=== PATIENT | female | born 1975 | race Caucasian/White ===

== ENCOUNTER → 2020-06-08 12:19 | Outpatient (CLI) | payer OTHER, SELFPAY ==
--- NOTE | ~2020-06-08 | MM_ITS ---
EXAMINATION: MM screening [facility] w [facility] HISTORY: Screening mammogram TECHNIQUE: Craniocaudal and mediolateral oblique 3-D tomosynthesis images were obtained and synthetic 2-D images were generated. CAD analysis was submitted and interpreted. COMPARISON: 11/20/2018 bilateral digital screening mammogram BREAST PARENCHYMAL COMPOSITION: The breasts are extremely dense, which lowers the sensitivity of mamm ography. FINDINGS: There is no evidence of suspicious mass, calcification, or architectural distortion to sugg est malignancy in either breast. There has been no suspicious interval change. IMPRESSION: 1. No mammographic evidence of malignancy. 2. Recommend routine screening mammography in one year. BI-RADS Category 1: Negative Reviewed, dictated and finalized at location A. NESS SOLUTIONS DIRECTOR
== END ==
PROVIDERS: Visit Provider Obstetrics & Gynecology
DX: Z12.31 Encounter for screening mammogram for malignant neoplasm of breast (principal)
CPT/HCPCS: 77063; 77067

== ENCOUNTER → 2021-06-17 11:01 | Outpatient (CLI) | payer OTHER, SELFPAY ==
--- NOTE | ~2021-06-17 | MM_ITS ---
EXAMINATION: MM screening [facility] HISTORY: Screening mammogram TECHNIQUE: Craniocaudal and mediolateral oblique 3-D tomosynthesis images were obtained and synthetic 2-D images were generated. CAD analysis was submitted and interpreted. COMPARISON: No prior mammogram is available for comparison at this institution. BREAST PARENCHYMAL COMPOSITION: The breasts are extremely dense, which lowers the sensitivity of mamm ography. FINDINGS: There is no evidence of suspicious mass, calcification, or architectural distortion to sugg est malignancy in either breast. There has been no suspicious interval change. IMPRESSION: 1. No mammographic evidence of malignancy. 2. Recommend routine screening mammography in one year. BI-RADS Category 1: Negative Reviewed, dictated and finalized at location A. MBLY LOADER
== END ==
PROVIDERS: Visit Provider Obstetrics & Gynecology
DX: Z12.31 Encounter for screening mammogram for malignant neoplasm of breast (principal)
CPT/HCPCS: 77063; 77067

== ENCOUNTER 2021-12-17 00:50 | Day surgery (SDC) | payer OTHER, SELFPAY ==
[2021-12-14 13:31] VITALS: BMI 22.0
--- NOTE | 2021-12-14 13:33 | PC.NURSE ---
Report to the Outpatient Waiting Room, entrance under the green pavilion located off [facility], at time __1000 on date _12/17/21_. OR Time: _1200 . - You and your visitor will be asked a series of questions to screen for COVID 19 for your protection. - Only one visitor is allowed at this time. - The patient visitor is requested to leave or wait in car when not with patient. - A mask is required within the hospital. Patients may have clear liquids (water, carbonated beverages, clear teas, apple juice) until 3 hours prior to surgery with a maximum of 20 ounces. - No food from midnight until time of surgery - Infants may have breast milk until 4 hours before surgery, infant formula 6 hours prior to surgery. - Children will be allowed to drink immediately following surgery. If applicable, please bring a bottle or sippy cup to assist with drinking. Juice, water, soda, and popsicles are readily available. For infants on formula, please bring formula the day of surgery. Pacifiers are allowed. Take the following medications with a SIP of water the morning of surgery: NONE Medications to discontinue per physician VITAMINS/ SUPPLIMENTS Date to take last dose_12/14/21 Please no make-up, nail romansh, hairspray, perfume, deodorant, or body powder the day of surgery. No jewelry (including any body piercings) or valuables the day of surgery, leave them at home. Please take a shower or bath the night before, or the morning of, surgery with an antibacterial soap. Wear comfortable, loose fitting clothing. Children are encouraged to wear pajamas. - Jewelry must be removed prior to entering the operating room. Rings and piercings that are not removed may be cut off. - The hospital will not accept responsibility for valuables. - Please leave all valuables, including medications, at home the day of surgery. If you are going home after surgery, a licensed tilt tray driver must drive you home. - NO public transportation without another adult. - We recommend that an adult stay with you for 24 hours following discharge. - We also recommend that you do not drive, make important decision, drink alcoholic beverages, or take any drugs that were not prescribed by your health care provider for at least 24 hours after your discharge time. For Pediatric surgeries, we recommend two adults accompany the child home (only one inside the building at this time). Follow any additional instructions given to you from your surgeon. If you or anyone in your household have experienced Covid symptoms in the past week, please notify your surgeon or the nurse liaison at the phone number below for possible testing. Telephone instructions given to ___PATIENT and asked if any additional questions and then verbalized understanding. Patient advised to call surgeon office or pre surgery nurse liaison [phone] if any additional questions.
[2021-12-17] VITALS (13 sets, daily range): BP systolic 104–128; BP diastolic 61–85; PULSE 61–108; RESP 14–20; TEMP 36.2–37.1; O2SAT 99–100
[2021-12-17] MEDS: ACETAMINOPHEN 500 MG TABLET 1000 MG PO (10:31)
--- NOTE | 2021-12-17 10:32 | WPDANESEPPF ---
Anes - Initial Pre Proc Eval Procedure: Operation Date: 12/17/21 12:00 Proposed Procedures p Hysteroscopy Dilation and Curettage Anastasiia Endometrial Ablation with Polypectomy - Sergio Bonilla MD s Laparoscopic Tubal Ligation with Rings - Sergio Bonilla MD Date/Time: 12/17/21 10:32 Surgeon: Sergio Bonilla MD Pre Op Diagnosis: desires sterilization,uterine polyp, irr. bleeding Patient Data Age: 46 Gender: F Height: 1.65 m Weight: 60.75 kg Last Vital Signs Temp 37.1 C 12/17/21 10:16 Pulse 104 H 12/17/21 10:16 Resp 16 12/17/21 10:16 BP 128/83 12/17/21 10:16 Pulse Ox 100 12/17/21 10:16 O2 Del Method Room Air 12/17/21 10:16 Allergies Allergy/AdvReac Type Severity Reaction Status Date / Time latex Allergy Intermediate IRRITATION Verified 12/17/21 10:24 WITH CONDOMS metoclopramide Allergy Intermediate Hives,JITTE Verified 12/17/21 10:24 RY azithromycin Allergy Mild Diarrhea Verified 12/17/21 10:24 levofloxacin Allergy Mild Diarrhea Verified 12/17/21 10:24 sulfamethoxazole Allergy Mild Diarrhea Verified 12/17/21 10:24 trimethoprim Allergy Mild Diarrhea Verified 12/17/21 10:24 Home Medications Medication Instructions Recorded Confirmed Type Lactobacillus 2 cap PO DAILY 12/14/21 12/17/21 History acidophilus-Bifidobac.animalis 2.5 billion cell capsule (Daily Probiotic) Pancreat-Bet [id number]-obt-jvkm-pap 250 1 cap PO DAILY 12/14/21 12/17/21 History mg-162 mg-65 mg-125 mg capsule (Super Enzyme) ascorbic acid (vitamin C) 500 mg 500 mg PO DAILY 12/14/21 12/17/21 History capsule cetirizine 10 mg capsule (Zyrtec) 10 mg PO DAILY PRN ALLERGIES 12/14/21 12/17/21 History cholecalciferol (vitamin D3) 125 250 mcg PO DAILY 12/14/21 12/17/21 History mcg (5,000 unit) tablet (Vitamin D3) magnesium oxide 300 mg PO DAILY 12/14/21 12/17/21 History mometasone 50 mcg/actuation nasal 2 spray intranasal DAILY PRN 12/14/21 12/17/21 History spray Congestion progesterone micronized 100 mg 100 mg PO HS 12/14/21 12/17/21 History capsule vitamin B complex 1 cap PO DAILY 12/14/21 12/17/21 History lorazepam 0.5 mg tablet 0.5 mg PO DAILY PRN Anxiety 12/15/21 12/17/21 History fiber 1 packet PO PRN 12/17/21 12/17/21 History Patient hx anesthesia problems: post op nausea/vomiting Family hx anesthesia problems: none Results Review: All pre-operative results and documents have been reviewed as part of the pre-operative evaluation. PMFSH Past Medical History Medical History (Updated 12/17/21 @ 10:32 by Nikita Isaac MD) Anxiety Surgical History Surgical History (Updated 12/17/21 @ 10:46 by Nikita Isaac MD) H/O cervical spine surgery History of cholecystectomy Social History Social History Smoking status: Never smoker Alcohol intake: never Substance use type: does not use Living arrangements: with family Anes - Eval Final PreProcedure Day of Procedure 12/17/21 10:32 Patient weight: normal Heart: regular rate and rhythm Lungs: clear to auscultation Airway: Mallampati scale class II Neurological: alert and oriented Last oral intake: >/= 8 hours ASA classification: II Anesthetic plan: proceed Anesthesia type and monitoring: general ETT and standard monitoring Results Review: All pre-operative results and documents have been reviewed as part of the pre-operative evaluation. Informed Consent: The patient's anesthetic plan and its attendant risks and benefits were discussed with the patient/family/POA. Questions were solicited and answers provided to the satisfaction of the patient/family/POA.
[2021-12-17] MEDS: KETOROLAC 15 MG/ML VIAL (*BKC) IV PUSH (10:39)
[2021-12-17] MEDS: LACTATED RINGERS 1,000 ML 30 ML IV CONT ×2 (10:41→13:42)
--- NOTE | 2021-12-17 11:33 | PM.IMHP ---
H&P: HPI History of Present Illness Date/Time: 12/17/21 11:33 Chief Complaint: Irregular bleeding Narrative: 46 y/o who has been taking daily progesterone prescribed by a wellness nurse practitioner. She has experienced irregular vaginal bleeding. Ultrasound exam shows an endometrial mass measuring 1.3 cm. I have offered surgical management. She is also finished with childbearing. She would like a concurrent tubal ligation. Review of Systems Review of Systems: All systems reviewed & are unremarkable except as noted in HPI and below PMFSH Past Medical History Medical History Anxiety Surgical History Surgical History H/O cervical spine surgery History of cholecystectomy Social History Social History Smoking status: Never smoker Alcohol intake: never Substance use type: does not use Living arrangements: with family Meds Home Medications and Allergies Home Medications Medication Instructions Recorded Confirmed Type Lactobacillus 2 cap PO DAILY 12/14/21 12/17/21 History acidophilus-Bifidobac.animalis 2.5 billion cell capsule (Daily Probiotic) Pancreat-Bet YKj-ejn-ihai-pap 250 1 cap PO DAILY 12/14/21 12/17/21 History mg-162 mg-65 mg-125 mg capsule (Super Enzyme) ascorbic acid (vitamin C) 500 mg 500 mg PO DAILY 12/14/21 12/17/21 History capsule cetirizine 10 mg capsule (Zyrtec) 10 mg PO DAILY PRN ALLERGIES 12/14/21 12/17/21 History cholecalciferol (vitamin D3) 125 250 mcg PO DAILY 12/14/21 12/17/21 History mcg (5,000 unit) tablet (Vitamin D3) magnesium oxide 300 mg PO DAILY 12/14/21 12/17/21 History mometasone 50 mcg/actuation nasal 2 spray intranasal DAILY PRN 12/14/21 12/17/21 History spray Congestion progesterone micronized 100 mg 100 mg PO HS 12/14/21 12/17/21 History capsule vitamin B complex 1 cap PO DAILY 12/14/21 12/17/21 History lorazepam 0.5 mg tablet 0.5 mg PO DAILY PRN Anxiety 12/15/21 12/17/21 History fiber 1 packet PO PRN 12/17/21 12/17/21 History Allergies Allergy/AdvReac Type Severity Reaction Status Date / Time latex Allergy Intermediate IRRITATION Verified 12/17/21 10:24 WITH CONDOMS metoclopramide Allergy Intermediate Hives,JITTE Verified 12/17/21 10:24 RY azithromycin Allergy Mild Diarrhea Verified 12/17/21 10:24 levofloxacin Allergy Mild Diarrhea Verified 12/17/21 10:24 sulfamethoxazole Allergy Mild Diarrhea Verified 12/17/21 10:24 trimethoprim Allergy Mild Diarrhea Verified 12/17/21 10:24 Vital Signs Vital Signs - 24 hr 12/17/21 10:16 Temperature 37.1 C Pulse Rate 104 H Respiratory Rate 16 Blood Pressure 128/83 Pulse Oximetry 100 Oxygen Delivery Room Air Exam Const: Orientation/consciousness: patient oriented x3 Other: Well-developed, well-nourished female in no acute distress. Neck: Thyroid: thyroid normal Lymphatic: no lymphadenopathy noted (in neck, axilla or inguinal nodes) Resp: Effort & Inspection: normal respiratory effort Auscultation: clear to auscultation bilaterally Cardio: Rate: regular rate Rhythm: regular rhythm Heart sounds: S1 normal heart sound present and S2 normal heart sound present GI: Other: ABD: Soft, nontender, nondistended. No guarding or rebound tenderness. No hepatosplenomegaly. : General: Yes no CVA tenderness Other: External genitalia: normal female hair distribution, without lesion. Urethral meatus: no lesion, non prolapsed. Bladder: no mass, nontender Vagina: well-estrogenized, without lesion or discharge. No cystocele or rectocele. Cervix: no lesion or discharge. Uterus: small, anteverted, freely mobile, nontender Adnexa: no mass or tenderness. Anus/perineum: no lesions, nontender Back/Spine/Pelvis: Back: no CVA tenderness Skin: General skin exam: normal color and no rashes or
--- NOTE | 2021-12-17 11:56 | WPDHPUPDATE1 ---
History and Physical Update Update Date/Time: 12/17/21 11:56 History and Physical has been reviewed, including an updated exam of the patient. There are NO changes in the patient's condition. Risks, benefits, and alternatives have been discussed and questions answered. Patient agrees to proceed with procedure.
--- NOTE | 2021-12-17 13:03 | W.PM.PROC2 ---
Procedure Note - Detailed Date of Procedure 12/17/21 Pre-op Diagnosis Metrorrhagia Abnormal pelvic ultrasound Desired sterility Post-op Diagnosis Same Procedure Performed Laparoscopic bilateral tubal ligation with Falope rings Hysteroscopy Dilation and sharp curettage Endometrial ablation Surgeon Sergio Bonilla MD Anesthesia General and Local (1% lidocaine) Findings Surgically absent gallbladder. Normal-appearing liver. Vermiform appendix not visualized. Uterus a little enlarged and boggy. Bilateral Fallopian tubes unremarkable. Posterior cul-de-sac obliterated by adhesive disease. Anterior cul-de-sac unremarkable. After adhesiolysis, both ovaries normal-appearing. On hysteroscopy, an apparent endometrial polyp was noted. Both tubal ostia seen. Uterus sounded to a depth of 9.5 cm with a cervical length of 3 cm. Description of Procedure The patient was taken to the operating room where general endotracheal anesthesia was administered. She was prepared and draped in the usual sterile fashion in dorsal lithotomy position. The bladder was drained with a red rubber catheter. A sterile speculum was placed into the vagina. The anterior lip of the cervix was grasped with a single-tooth tenaculum. The acorn uterine manipulator was placed. The speculum was withdrawn. Gloves were changed and attention was turned the abdomen. An infraumbilical skin incision was made with a scalpel. The abdomen was tented and a 5mm bladeless trocar was advanced under direct laparoscopic visualization. Pneumoperitoneum was administered using carbon dioxide gas. A survey of the pelvis and abdomen revealed the findings noted above. A second skin incision was made in the midline above the symphysis pubis and an 8mm bladeless trocar was advanced under direct laparoscopic visualization. The blunt probe was used to lyse adhesions in the posterior cul-de-sac to free the ovaries and visualize them. The fallopian tube on the right side was followed out to the fimbriated end for identification. It was then grasped in the midportion with the Falope ring applicator. The Falope ring was tented applied. A good loop of tube was noted to be distal to the ring. Hemostasis was excellent. The device was reloaded and the contralateral tube was similarly identified and ligated. An excellent application was noted here as well. The pelvis was irrigated with warmed normal saline. A total of 6mL of 1% lidocaine was infiltrated into the serosa of the proximal tubes for postoperative anesthesia. The ports were withdrawn. The gas was allowed to escape. The skin incisions were reapproximated using interrupted subcuticular sutures of 4 0 Vicryl. Dermaflex was applied externally. Attention was redirected to the vagina, where the acorn manipulator was withdrawn and the speculum reintroduced. Ten mL of 1% lidocaine was administered in a paracervical block. The cervix was then gently dilated using Hegar dilators until an 8 mm dilator could be passed. Hysteroscopy was performed using sterile saline as a distention medium. Findings are as noted above. Sharp curettage was then performed, and endometrial curettings were collected on a Telfa pad and passed off to be sent to pathology. Finally, the the Anastasiia device was advanced and endometrial ablation commenced without difficulty. The device was withdrawn and a second look was taken using the hysteroscope. Excellent coverage of the endometrial cavity was noted. The tenaculum was removed. Hemostasis was excellent. Sponge, lap, needle and instrument counts were correct. The patient was awakened and taken to the recovery room in stable condition. I was present and scrubbed through the entire procedure. Implants Falope rings x 2 Estimated Blood Loss 10 Drains No Packing No Pathology Yes (Endometrial curettings) Complications None Condition Stable Disposition PACU
[2021-12-17] MEDS: fentaNYL CITRATE INJ (*CRX) 100 MCG/2 ML VIAL 25 MCG IV PUSH ×8 (13:24→14:28)
[2021-12-17] MEDS: diphenhydrAMINE HCl INJ 50 MG/ML VIAL 12.5 MG IV PUSH ×2 (13:44→14:09)
[2021-12-17] MEDS: ONDANSETRON INJ 4 MG/2 ML VIAL IV PUSH (15:05)
[2021-12-17] MEDS: oxyCODONE HCL (*CRX) 5 MG TAB IR PO (15:22)
== END 2021-12-17 16:36 | disposition home or self-care (01) ==
PROVIDERS: PCP Internal Medicine; Visit Provider Obstetrics & Gynecology
PROC: 0U5B8ZZ Destruction of Endometrium, Via Natural or Artificial Opening Endoscopic (ICD-10-PCS; CPT 58563; principal; 2021-12-17 12:00)
PROC: (CPT 58671; 2021-12-17 12:00)
DX: N92.1 Excessive and frequent menstruation with irregular cycle (principal); Z30.2 Encounter for sterilization; N73.6 Female pelvic peritoneal adhesions (postinfective); N84.0 Polyp of corpus uteri; F41.9 Anxiety disorder, unspecified
CPT/HCPCS: 58671; 58563; 88305; A4264; A9270; J0330; J1100; J1200; J1885; J2250; J2370; J2405; J2704; J2710; J3010; J7030; J7120

== ENCOUNTER → 2022-08-04 11:31 | Outpatient (CLI) | payer OTHER, SELFPAY ==
--- NOTE | ~2022-08-04 | MM_ITS ---
EXAMINATION: MM screening [facility] HISTORY: Screening mammogram TECHNIQUE: Craniocaudal and mediolateral oblique 3-D tomosynthesis images were obtained and synthetic 2-D images were generated. CAD analysis was submitted and interpreted. COMPARISON: 06/17/2021, 06/08/2020, 11/20/2018 BREAST PARENCHYMAL COMPOSITION: The breasts are extremely dense, which lowers the sensitivity of mamm ography. FINDINGS: No suspicious mass, calcification, or architectural distortion are identified in either bella ast to suggest malignancy. There has been no suspicious interval change. IMPRESSION: 1. No mammographic evidence of malignancy. 2. Recommend routine screening mammography in one year. BI-RADS Category 1: Negative Reviewed, dictated and finalized at location A. GENCY ROOM SPECIALIST
== END ==
PROVIDERS: PCP Obstetrics & Gynecology; Visit Provider Obstetrics & Gynecology
DX: Z12.31 Encounter for screening mammogram for malignant neoplasm of breast (principal)
CPT/HCPCS: 77063; 77067

== ENCOUNTER 2022-11-02 13:14 | Emergency (ER) | payer OTHER, SELFPAY ==
--- NOTE | ~2022-11-02 | CT_ITS ---
EXAMINATION: CT abdomen pelvis wo con DATE: 11/02/2022 14:29 INDICATION: Right lower quadrant and flank pain. Nausea and vomiting. TECHNIQUE: Computed tomography (CT) of the abdomen and pelvis was performed without intravenous contr ast. Automated exposure control and iterative reconstruction technique were employed. Exam dose: 261 .88 mGy-cm total exam DLP. COMPARISON: 12/14/2017 right upper quadrant abdominal ultrasound examination FINDINGS: The lung bases are clear. Normal heart size. No pericardial or pleural effusion. Status post cholecystectomy. No bile duct or pancreatic duct dilatation. The liver, spleen, pancreas, and adrenal glands and kidneys appear unremarkable on this limited noncontrast examination. No urina ry tract calculus or hydroureteronephrosis is detected. Status post bilateral tubal ligation. The uterus, adnexal areas and urinary bladder are otherwise unr emarkable. There are some scattered nonenlarged right lower quadrant lymph nodes which may be due to mesenteric adenitis. No CT evidence of appendicitis is noted. No bowel obstruction, bowel wall thickening, pneum atosis or intraperitoneal free air is detected. Very small fat-containing umbilical hernia. Included skeletal structures are unremarkable. IMPRESSION: Status post cholecystectomy Status post bilateral tubal ligation Mild mesenteric adenitis, right lower quadrant is suggested No CT evidence of appendicitis or urinary tract calculus or hydroureteronephrosis Reviewed, dictated and finalized at Location A. Reviewed, dictated and finalized at location B. IMPRESSION: Status post cholecystectomy Status post bilateral tubal ligation Mild mesenteric adenitis, right lower quadrant is suggested No CT evidence of appendicitis or urinary tract calculus or hydroureteronephros is
[2022-11-02 13:16] VITALS: BP 137/80; PULSE 95; RESP 18; TEMP 36.6; O2SAT 100
[2022-11-02 13:47] LABS: Basophils Percent Auto 0.5 % (0.2-1.2); Eosinophils Percent Auto 0.5 % (0-4.4); Hematocrit 41.9 % (37.0-47.0); Hemoglobin 14.2 g/dL (12.0-15.0); Immature Granulocyte Absolute 0.02 K/mm3 (0.00-0.031); Immature Granulocyte Percent A 0.3 % (0-0.5); Lymphocytes Percent Auto 27.2 % (18.3-44.2); Mean Corpuscular HGB Conc 33.9 g/dl (32-36); Mean Corpuscular Hemoglobin 31.3 pg (26-34); Mean Corpuscular Volume 92.5 fl (80-100); Mean Platelet Volume 11.2 fl (7.4-10.4); Monocytes Absolute Auto 0.7 K/mm3 (0.1-0.6); Monocytes Percent Auto 9.7 % (2.6-8.5); Neutrophils Absolute Auto 4.5 K/mm3 (1.3-6.7); Neutrophils Percent Auto 61.8 % (45.5-73.1); Platelet Count Result 220 k/mm3 (150-375); Red Blood Count 4.53 M/mm3 (4.2-5.4); Red Cell Distribution Width 12.2 % (11.5-14.5); White Blood Count 7.3 K/mm3 (4.5-10.0)
[2022-11-02 13:57] LABS: Alanine Aminotransferase 22 U/L (6-35); Albumin Level 4.8 g/dL (3.5-5.1); Alkaline Phosphatase 62 U/L (38-126); Anion Gap 9 mmol/L (8-16); Aspartate Amino Transferase 28 U/L (14-36); Bilirubin,Total 0.6 mg/dL (0.2-1.3); Blood Urea Nitrogen 11 mg/dL (7-17); Calcium 9.3 mg/dL (8.4-10.2); Carbon Dioxide 26 mmol/L (22-30); Chloride 104 mmol/L (98-107); Estimated CRCL calculation 62 ml/min; Estimated Glomerular Filt Rate > 60; Glucose 101 mg/dL (65-110); Lipase 131 U/L (23-300); Potassium 3.6 mmol/L (3.4-5.0); Sodium 139 mmol/L (137-145)
[2022-11-02 14:00] LABS: Appearance Urine Cloudy (Clear); Bacteria Urine None Seen /hpf; Bilirubin Urine Negative (Negative); Blood Urine Negative (Negative); Color Urine Yellow (Yellow); Glucose Urine UA Negative (Negative); Ketones Urine Negative (Negative); Leukocyte Esterase Ur Trace LEU/UL (Negative); Need Manual Microscopic Reviewed; Nitrate Urine Negative (Negative); Non Pathogenic Casts 0-2; Protein Urine Negative (Negative); Specific Grav Ur 1.004 (1.001-1.035); Squamous Epithelial Cell Urine None seen /hpf (Few); Urobilinogen Urine 0.2 mg/dL (<2.0); WBC Urine 0-5 /hpf
[2022-11-02 14:01] LABS: Add Urine Microscopic? YES
--- NOTE | 2022-11-02 14:43 | ED.ABDPAIN ---
HPI - Abdominal Pain General Chief Complaint: Abdominal Pain Stated Complaint: RLQ pain Time Seen by Provider: 11/02/22 13:30 History of Present Illness HPI narrative: Patient is a 47-year-old female who presents ER with right lower quadrant abdominal pain. Ongoing since 10/27/2022. Intermittent. Had improved over weekend but worsening today. She has an outpatient ultrasound scheduled for her ovary to see if she has an ovarian cyst. No vaginal bleeding or discharge. No urinary frequency urgency or dysuria. She has mild pain going into her right back and feels slightly constipated. Related Data Home Medications Medication Instructions Recorded Confirmed Lactobacillus 2 cap PO DAILY 12/14/21 12/17/21 acidophilus-Bifidobac.animalis 2.5 billion cell capsule (Daily Probiotic) Pancreat-Bet OBu-ejl-mtby-pap 250 1 cap PO DAILY 12/14/21 12/17/21 mg-162 mg-65 mg-125 mg capsule (Super Enzyme) ascorbic acid (vitamin C) 500 mg 500 mg PO DAILY 12/14/21 12/17/21 capsule cetirizine 10 mg capsule (Zyrtec) 10 mg PO DAILY PRN ALLERGIES 12/14/21 12/17/21 cholecalciferol (vitamin D3) 125 250 mcg PO DAILY 12/14/21 12/17/21 mcg (5,000 unit) tablet (Vitamin D3) magnesium oxide 300 mg PO DAILY 12/14/21 12/17/21 vitamin B complex 1 cap PO DAILY 12/14/21 12/17/21 lorazepam 0.5 mg tablet 0.5 mg PO DAILY PRN Anxiety 12/15/21 12/17/21 fiber 1 packet PO PRN 12/17/21 12/17/21 riboflavin (vitamin B2) 400 mg 400 mg PO DAILY 05/26/22 tablet Allergies Allergy/AdvReac Type Severity Reaction Status Date / Time latex Allergy Intermediate IRRITATION Verified 11/01/22 11:05 WITH CONDOMS metoclopramide Allergy Intermediate Hives,JITTE Verified 11/01/22 11:05 RY azithromycin Allergy Mild Diarrhea Verified 11/01/22 11:05 levofloxacin Allergy Mild Diarrhea Verified 11/01/22 11:05 sulfamethoxazole Allergy Mild Diarrhea Verified 11/01/22 11:05 trimethoprim Allergy Mild Diarrhea Verified 11/01/22 11:05 Review of Systems Review of Systems: All systems reviewed & are unremarkable except as noted in HPI and below Constitutional: Constitutional: Denies chills, Denies fatigue and Denies fever(s) Gastrointestinal: Gastrointestinal: Reports abdominal pain, Reports bloating, Reports constipation, Denies diarrhea, Denies nausea and Denies vomiting Genitourinary: Genitourinary: Denies hematuria, Denies nocturia, Denies dysuria, Reports pelvic pain and Reports flank pain Musculoskeletal: Musculoskeletal: Reports back pain, Denies arthralgias and Denies joint swelling PMFSH Past Medical History Medical History Anxiety Biliary dyskinesia Diarrhea Dyspepsia Encounter for surgical aftercare following surgery on the digestive system Postprandial nausea Surgical History Surgical History H/O cervical spine surgery History of cholecystectomy Social History Social History Smoking status: Never smoker Second hand tobacco smoke exposure: No Alcohol intake: never Substance use: never Substance use type: does not use Lack of Transportation: No Lack of Food: Never True Current Housing: I Have Housing Concerned About Future Housing: No Difficulty Paying Gas/Electric Bills: No Difficulty Paying for Meds: No Currently Unemployed: No Difficulty w/ Childcare or Family Care: No Living arrangements: with family Occupation/Education: occupation Gender identity (if verbalized by the patient): Female Sexual Orientation (if Verbalized by the Patient): Straight or Heterosexual Exam Narrative: GENERAL: Well-appearing, well-nourished, and in no acute distress. HEAD: Normocephalic, atraumatic. ENT: Mucous membranes moist. CHEST: Clear to auscultation. No respiratory distress. HEART: Regular rate and rhythm. Normal peripheral pulses. ABDOMEN:
== END 2022-11-02 16:04 | disposition home or self-care (01) ==
PROVIDERS: Emergency Medicine; Emergency Provider Emergency Medicine
DX: I88.0 Nonspecific mesenteric lymphadenitis (principal); F41.9 Anxiety disorder, unspecified; Z90.49 Acquired absence of other specified parts of digestive tract
CPT/HCPCS: 36415; 74176; 80053; 81001; 81025; 83690; 85025; 99284

== ENCOUNTER → 2023-02-01 08:05 | Outpatient (CLI) | payer OTHER, SELFPAY ==
--- NOTE | ~2023-02-01 | MR_ITS ---
MRI of the lumbar spine Clinical History: Radiculopathy Technique: Axial T2-weighted images, and sagittal T1-weighted, T2-weighted, and T2 fat-sat images wer e acquired. Findings: There is no fracture or subluxation of the lumbar spine. Vertebral bodies maintain normal h eight and alignment. No suspicious bone marrow signal abnormality seen. There is no significant disc bulge or herniation at any lumbar level. There is moderate facet arthrop athy at L3-L4, L4-L5, and L5-S1. No spinal canal stenosis or neural foraminal narrowing at any lumbar level. Paravertebral soft tissues are unremarkable. Impression: Mild degenerative change, as above. Reviewed, dictated and finalized at location M. Impression: Mild degenerative change, as above.
== END ==
PROVIDERS: PCP Physician Assistant Medical; Visit Provider Physician Assistant Medical
DX: M54.16 Radiculopathy, lumbar region (principal)
CPT/HCPCS: 72148

== ENCOUNTER 2023-03-26 10:59 | Emergency (ER) | payer OTHER, SELFPAY ==
--- NOTE | 2023-03-26 11:24 | ED.GENADULT ---
HPI - General Adult General Chief complaint: Upper Respiratory Infection Stated complaint: sorethroat,cough,congestion Time Seen by Provider: 03/26/23 11:24 Source: patient Mode of arrival: ambulatory Limitations: no limitations History of Present Illness HPI narrative: 47-year-old female patient presents to clinic with cough that started 2 days ago. Patient states she started feeling sick on Monday of last week and is feeling better today than she has all week. Symptoms started as chest congestion and has moved more upper throat she states with cough. patient states her right ear has feeling full with a little bit of dull pain. patient had a sore throat last week but states it is better today. Patient is also experiencing facial fullness and congestion of the sinuses, and sinus headaches that has gone away today. patient states she has been taking DayQuil and NyQuil to help with the cough but the NyQuil has not been helping so she is elevating her head at night. patient denies past medical history of asthma or bronchitis. patient states she has taken for home covid test all negative. patient denies shortness of breath and chest pain. patient denies dyspnea on exertion. Related Data Home Medications Medication Instructions Recorded Confirmed Lactobacillus 2 cap PO DAILY 12/14/21 03/26/23 acidophilus-Bifidobac.animalis 2.5 billion cell capsule (Daily Probiotic) ascorbic acid (vitamin C) 500 mg 500 mg PO DAILY 12/14/21 03/26/23 capsule cetirizine 10 mg capsule (Zyrtec) 10 mg PO DAILY PRN ALLERGIES 12/14/21 03/26/23 magnesium oxide 300 mg PO DAILY 12/14/21 03/26/23 vitamin B complex 1 cap PO DAILY 12/14/21 03/26/23 riboflavin (vitamin B2) 400 mg 400 mg PO DAILY 05/26/22 03/26/23 tablet cholecalciferol (vitamin D3) 250 250 mcg PO DAILY 11/17/22 03/26/23 mcg (10,000 unit) capsule drospirenone (contraceptive) 4 mg 1 tablet PO DAILY 11/17/22 03/26/23 (28) tablet (Slynd) Allergies Allergy/AdvReac Type Severity Reaction Status Date / Time latex AdvReac Intermediate IRRITATION Verified 03/26/23 11:09 WITH CONDOMS metoclopramide AdvReac Intermediate Hives,JITTE Verified 03/26/23 11:09 RY azithromycin AdvReac Mild Diarrhea Verified 03/26/23 11:09 levofloxacin AdvReac Mild Diarrhea Verified 03/26/23 11:09 sulfamethoxazole AdvReac Mild Diarrhea Verified 03/26/23 11:09 trimethoprim AdvReac Mild Diarrhea Verified 03/26/23 11:09 Review of Systems Review of Systems: CONSTITUTIONAL: Denies fever, chills, or sweats. EYES: Denies visual changes, redness, or discharge. ENT: Denies rhinorrhea, positive congestion, positive sore throat 2 days ago, and right otalgia. CARDIOVASCULAR: Denies chest pain, palpitations, or edema. RESPIRATORY: positive cough, negative dyspnea. GASTROINTESTINAL: Denies abdominal pain, nausea, vomiting, or diarrhea. GENITOURINARY: Denies dysuria or hematuria. SKIN: Denies rash or itching. MUSCULOSKELETAL: Denies back pain, joint pain, or myalgia. NEUROLOGIC: positive sinus headaches 2 days ago, denies numbness, and weakness. PSYCHIATRIC: no current anxiety or depression. [facility] [place] Past Medical History Medical History Anxiety Biliary dyskinesia Diarrhea Dyspepsia Encounter for surgical aftercare following surgery on the digestive system Postprandial nausea Surgical History Surgical History H/O cervical spine surgery History of cholecystectomy Social History Social History Smoking status: Never smoker Second hand tobacco smoke exposure: No Alcohol intake: never Substance use: never Substance use type: does not use Lack of Transportation: No Lack of Food: Never True Current Housing: I Have Housing Concerned About Future Housing: No Difficulty Paying Gas/Electric Bills: No
[2023-03-26 11:26] VITALS: BP 134/84; PULSE 104; RESP 18; TEMP 36.9; O2SAT 100
== END 2023-03-26 12:11 | disposition home or self-care (01) ==
PROVIDERS: Emergency Provider Nurse Practitioner Family; PCP Physician Assistant Medical
DX: J06.9 Acute upper respiratory infection, unspecified (principal); F41.9 Anxiety disorder, unspecified
CPT/HCPCS: 87081; 87880; 99213; G0463

== ENCOUNTER → 2023-05-12 11:20 | Outpatient (CLI) | payer OTHER, SELFPAY ==
--- NOTE | ~2023-05-12 | XR_ITS ---
EXAMINATION: HAND-MANUEL ARTHRITIS 3+VIEWS DATE: 05/12/2023 12:03 INDICATION: Polyarthralgia TECHNIQUE: Posteroanterior, lateral, and oblique views of the left and of the right hands as well as a ballcatchers view of both hands were obtained. COMPARISON: None. FINDINGS: Bone alignment is normal at both hands. No fractures. Mild osteoarthritis with mild nonuniform joint space narrowing and tiny marginal osteophyte at the left first metacarpophalangeal joint. Remaining j oint space at the bilateral hands and wrists are normal. No erosions to suggest inflammatory arthriti s such as rheumatoid. Soft tissues are unremarkable. IMPRESSION: 1. 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 No findings to suggest an inflamm atory arthritis. Reviewed, dictated and finalized at location A. IMPRESSION: 1. 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 No findings to suggest an inflammatory arthritis.
--- NOTE | ~2023-05-12 | XR_ITS ---
EXAMINATION: XR hip RT min 2V, XR sacroiliac joints min 3V DATE: 05/12/2023 12:03 INDICATION: Polyarthralgia with posterior right hip pain TECHNIQUE: 1. Anteroposterior and frog-leg leg lateral views of the right hip were obtained. 2. Anteroposterior and left and right oblique views of the bilateral sacroiliac joints were obtained. COMPARISON: 10/07/2022 FINDINGS: Alignment is normal. No fracture or suspected avascular necrosis. Right hip and bilateral sacroiliac joint spaces are normal. No erosions to suggest an inflammatory sacroiliitis. Chronic bone island at the right innominate bone. Bilateral tubal ligation rings are seen in the pelvis. Visualized lower serafin mbar spine appears unremarkable on the provided projections. IMPRESSION: 1. Normal right hip and bilateral sacroiliac joints. Reviewed, dictated and finalized at location A. IMPRESSION: 1. Normal right hip and bilateral sacroiliac joints.
--- NOTE | ~2023-05-12 | XR_ITS ---
EXAMINATION: XR foot RT min 3V, XR foot LT min 3V DATE: 05/12/2023 12:03 INDICATION: Polyarthralgia TECHNIQUE: 1.Dorsoplantar, two oblique and lateral views of the left foot were obtained. 2. Dorsoplantar, two oblique and lateral views of the right foot were obtained. COMPARISON: None FINDINGS: Normal alignment at the bilateral feet. Minimal to mild polyarticular osteoarthritis in the mid and f orefoot with typical distribution most prominent at the tarsometatarsal and distal interphalangeal leatha ints. At the left hindfoot there appears to be articulation with relatively smooth cortices between t he anterior process of the calcaneus and the navicular consistent with a likely synchondrosis (cartil aginous coalition). No erosions to suggest inflammatory arthritis. Normal variant right-sided type I and left-sided type II accessory os naviculare. Soft tissues are unremarkable. IMPRESSION: 1. Typical pattern of minimal to mild polyarticular osteoarthritis at the bilateral mid and forefeet. No erosions to suggest inflammatory arthritis. 2. 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 Reviewed, dictated and finalized at location A. IMPRESSION: 1. Typical pattern of minimal to mild polyarticular osteoarthritis at the [facility] mid and forefeet. No erosions to suggest inflammatory arthritis. 2. 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 IMPRESSION: 1. Typical pattern of minimal to mild polyarticular osteoarthritis at the [facility] mid and forefeet. No erosions to suggest inflammatory arthritis. 2. 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
== END ==
PROVIDERS: PCP Physician Assistant Medical; Visit Provider Physician Assistant
DX: M19.072 Primary osteoarthritis, left ankle and foot (principal); M19.071 Primary osteoarthritis, right ankle and foot; M89.8X7 Other specified disorders of bone, ankle and foot; M19.042 Primary osteoarthritis, left hand
CPT/HCPCS: 72202; 73130; 73502; 73630

== ENCOUNTER 2024-03-14 02:45 | Day surgery (SDC) | payer OTHER, SELFPAY ==
[2024-02-27 09:39] VITALS: BMI 23.4
[2024-03-14 06:29] VITALS: BP 138/87; PULSE 120; RESP 18; TEMP 36.3; O2SAT 100; BMI 22.8
[2024-03-14] MEDS: LACTATED RINGERS 1,000 ML 150 ML IV CONT (06:37)
--- NOTE | 2024-03-14 07:26 | WPDANESEPPF ---
Anes - Initial Pre Proc Eval Procedure: Operation Date: 03/14/24 07:30 Proposed Procedures p Screening Colonoscopy - Anil Wilson DO Date/Time: 03/14/24 07:26 Surgeon: Anil Wilson DO Pre Op Diagnosis: Screening for malignant neoplasm of colon Patient Data Age: 48 Gender: F Height: 1.65 m Weight: 62.1 kg Last Vital Signs Temp 97.4 F L 03/14/24 06:29 Pulse 120 H 03/14/24 06:29 Resp 18 03/14/24 06:29 BP 138/87 03/14/24 06:29 Pulse Ox 100 03/14/24 06:29 O2 Del Method Room Air 03/14/24 06:29 Allergies Allergy/AdvReac Type Severity Reaction Status Date / Time latex AdvReac Intermediate IRRITATION Verified 03/14/24 06:26 WITH CONDOMS metoclopramide AdvReac Intermediate Hives,JITTE Verified 03/14/24 06:26 RY ubrogepant [From Ubrelvy] AdvReac Intermediate Rash Verified 03/14/24 06:26 azithromycin AdvReac Mild Diarrhea Verified 03/14/24 06:26 levofloxacin AdvReac Mild Diarrhea Verified 03/14/24 06:26 sulfamethoxazole AdvReac Mild Diarrhea Verified 03/14/24 06:26 trimethoprim AdvReac Mild Diarrhea Verified 03/14/24 06:26 Home Medications Medication Instructions Recorded Confirmed Type Lactobacillus 2 cap PO DAILY 12/14/21 03/14/24 History acidophilus-Bifidobac.animalis 2.5 billion cell capsule (Daily Probiotic) ascorbic acid (vitamin C) 500 mg 500 mg PO DAILY 12/14/21 03/14/24 History capsule magnesium oxide 300 mg PO DAILY 12/14/21 03/14/24 History vitamin B complex 1 cap PO DAILY 12/14/21 03/14/24 History riboflavin (vitamin B2) 400 mg 400 mg PO DAILY 05/26/22 03/14/24 History tablet cholecalciferol (vitamin D3) 250 250 mcg PO DAILY 11/17/22 03/14/24 History mcg (10,000 unit) capsule drospirenone (contraceptive) 4 mg 1 tablet PO DAILY 11/17/22 03/14/24 History (28) tablet (Slynd) fluticasone propionate 50 2 spray intranasal DAILY #16 grams 11/21/23 03/14/24 Rx mcg/actuation nasal spray,suspension (Flonase Allergy Relief) zavegepant 10 mg/actuation nasal 10 mg intranasal ONCE PRN migraine 11/29/23 03/14/24 Rx spray (Zavzpret) headache #6 ea loratadine 10 mg tablet (Claritin) 10 mg PO PRN PRN Allergy Symptoms 02/27/24 03/14/24 History Patient hx anesthesia problems: none Family hx anesthesia problems: none Results Review: All pre-operative results and documents have been reviewed as part of the pre-operative evaluation. [facility] Past Medical History Medical History (Updated 11/21/23 @ 21:35 by Yolanda Silva PA-C) Allergic rhinitis mold, trees Anxiety Biliary dyskinesia Diarrhea Dyspepsia Encounter for surgical aftercare following surgery on the digestive system Migraine, menstrual Postprandial nausea Surgical History Surgical History H/O cervical spine surgery History of cholecystectomy Social History Social History Smoking status: Never smoker Second hand tobacco smoke exposure: No Alcohol intake: never Substance use: never Substance use type: does not use Lack of Transportation: No Lack of Food: Never True Current Housing: I Have Housing Concerned About Future Housing: No Difficulty Paying Gas/Electric Bills: No Difficulty Paying for Meds: No Currently Unemployed: No Education: Master's Degree or Higher Difficulty w/ Childcare or Family Care: No Living arrangements: with family Occupation/Education: occupation Gender identity (if verbalized by the patient): Female Sexual Orientation (if Verbalized by the Patient): Straight or Heterosexual Spiritual care concerns: No Anes - Eval Final PreProcedure Day of Procedure 03/14/24 07:26 Patient weight: normal Heart: regular rate and rhythm Lungs: clear to auscultation Airway: Mallampati scale class II Neurological: alert and oriented Last oral intake: >/= 8 hours ASA classification: I
--- NOTE | 2024-03-14 07:32 | PM.IMHP ---
H&P: HPI History of Present Illness Date/Time: 03/14/24 07:32 Chief Complaint: Screening for colorectal cancer Narrative: this is a 48-year-old woman who presents for colonoscopy. She denies family history cancer hematochezia/bleeding. She has never had a colonoscopy before. Review of Systems Review of Systems: All systems reviewed & are unremarkable except as noted in HPI and below Constitutional: Constitutional: Denies chills, Denies fever(s), Denies headache(s) and Denies weight loss Eyes: Eyes: Denies change in vision ENT: Denies dizziness, Denies headache(s), Denies neck mass and Denies throat swelling Cardiovascular: Cardiovascular: Denies chest pain, Denies lightheadedness and Denies dyspnea Respiratory: Respiratory: Denies cough, Denies dyspnea and Denies wheezing Gastrointestinal: Gastrointestinal: Denies abdominal pain, Denies change in bowel habits, Denies nausea and Denies vomiting Genitourinary: Genitourinary: Denies hematuria and Denies dysuria Musculoskeletal: Musculoskeletal: Reports as per HPI Integumentary/Breasts: Skin/Breast: Reports as per HPI Neurologic: Denies dizziness and Denies headache(s) Allergic/Immunologic: Allergic/Immunologic: Denies throat swelling and Denies wheezing PMF Past Medical History Medical History (Updated 03/14/24 @ 07:33 by Anil Wilson DO) Allergic rhinitis mold, trees Anxiety Biliary dyskinesia Diarrhea Dyspepsia Encounter for surgical aftercare following surgery on the digestive system Migraine, menstrual Postprandial nausea Surgical History Surgical History H/O cervical spine surgery History of cholecystectomy Social History Social History Smoking status: Never smoker Second hand tobacco smoke exposure: No Alcohol intake: never Substance use: never Substance use type: does not use Lack of Transportation: No Lack of Food: Never True Current Housing: I Have Housing Concerned About Future Housing: No Difficulty Paying Gas/Electric Bills: No Difficulty Paying for Meds: No Currently Unemployed: No Education: Master's Degree or Higher Difficulty w/ Childcare or Family Care: No Living arrangements: with family Occupation/Education: occupation Gender identity (if verbalized by the patient): Female Sexual Orientation (if Verbalized by the Patient): Straight or Heterosexual Spiritual care concerns: No Meds Home Medications and Allergies Home Medications Medication Instructions Recorded Confirmed Type Lactobacillus 2 cap PO DAILY 12/14/21 03/14/24 History acidophilus-Bifidobac.animalis 2.5 billion cell capsule (Daily Probiotic) ascorbic acid (vitamin C) 500 mg 500 mg PO DAILY 12/14/21 03/14/24 History capsule magnesium oxide 300 mg PO DAILY 12/14/21 03/14/24 History vitamin B complex 1 cap PO DAILY 12/14/21 03/14/24 History riboflavin (vitamin B2) 400 mg 400 mg PO DAILY 05/26/22 03/14/24 History tablet cholecalciferol (vitamin D3) 250 250 mcg PO DAILY 11/17/22 03/14/24 History mcg (10,000 unit) capsule drospirenone (contraceptive) 4 mg 1 tablet PO DAILY 11/17/22 03/14/24 History (28) tablet (Slynd) fluticasone propionate 50 2 spray intranasal DAILY #16 grams 11/21/23 03/14/24 Rx mcg/actuation nasal spray,suspension (Flonase Allergy Relief) zavegepant 10 mg/actuation nasal 10 mg intranasal ONCE PRN migraine 11/29/23 03/14/24 Rx spray (Zavzpret) headache #6 ea loratadine 10 mg tablet (Claritin) 10 mg PO PRN PRN Allergy Symptoms 02/27/24 03/14/24 History Allergies Allergy/AdvReac Type Severity Reaction Status Date / Time latex AdvReac Intermediate IRRITATION Verified 03/14/24 06:26 WITH CONDOMS metoclopramide AdvReac Intermediate Hives,JITTE Verified 03/14/24 06:26 RY ubrogepant [From Ubrelvy] AdvReac Intermediate Rash Ve
[2024-03-14 07:49] VITALS: BP 101/58; PULSE 98; RESP 20; O2SAT 99
[2024-03-14 07:59] VITALS: BP 103/59; PULSE 95; RESP 21; O2SAT 99
[2024-03-14 08:09] VITALS: BP 103/64; PULSE 82; RESP 18; O2SAT 99
== END 2024-03-14 08:25 | disposition home or self-care (01) ==
PROVIDERS: PCP Physician Assistant Medical; Visit Provider Surgery
PROC: 0DJD8ZZ Inspection of Lower Intestinal Tract, Via Natural or Artificial Opening Endoscopic (ICD-10-PCS; CPT 45378; principal; 2024-03-14 07:30)
DX: Z12.11 Encounter for screening for malignant neoplasm of colon (principal); F41.9 Anxiety disorder, unspecified; K82.8 Other specified diseases of gallbladder; Z98.890 Other specified postprocedural states; Z98.1 Arthrodesis status; Z90.49 Acquired absence of other specified parts of digestive tract
CPT/HCPCS: 45378; J1885; J2704; J7120

== ENCOUNTER 2024-08-05 13:45 | Outpatient (CLI) | payer OTHER, SELFPAY ==
--- NOTE | ~2024-08-05 | MM_ITS ---
EXAMINATION: MM screening mickey BI w [facility] HISTORY: Screening TECHNIQUE: Craniocaudal and mediolateral oblique 3-D tomosynthesis images were obtained and synthetic 2-D images were generated. CAD analysis was submitted and interpreted. COMPARISON: Comparison to multiple prior studies sequentially, with oldest reviewed study dated 01/2019. BREAST PARENCHYMAL COMPOSITION: Dense: The breasts are extremely dense, which lowers the sensitivity of mammography. FINDINGS: There is no evidence of suspicious mass, calcification, or architectural distortion to sugg est malignancy in either breast. There has been no suspicious interval change. IMPRESSION: 1. No mammographic evidence of malignancy. 2. Recommend routine screening mammography in one year. BI-RADS Category 1: Negative Reviewed, dictated and finalized at location A. ON [facility]
== END 2024-08-05 13:46 | disposition home or self-care (01) ==
LOC: MICIMG 13:46
PROVIDERS: PCP Physician Assistant Medical; Visit Provider Obstetrics & Gynecology
DX: Z12.31 Encounter for screening mammogram for malignant neoplasm of breast (principal)
CPT/HCPCS: 77063; 77067

== ENCOUNTER 2024-09-26 12:08 | Observation (INO) | payer OTHER, SELFPAY ==
[2024-09-26] VITALS (36 sets, daily range): BP systolic 101–145; BP diastolic 59–112; PULSE 85–228; RESP 15–24; TEMP 36.6–37; O2SAT 95–100; BMI 23.5
--- NOTE | 2024-09-26 | ECHO_ITS ---
Patient Info Name: Mary Leger Age: 49 years : 1975 Gender: Female Ht: 66 in Wt: 140 lbs BSA: 1.72 m2 HR: 120 bpm BP: 101 / 87 mmHg Heart Rhythm: Sinus Rhythm Technical Quality: Fair Exam Date: 09/26/2024 3:21 PM Exam Location: Echo Lab Patient Status: Inpatient Admit Date: 09/26/2024 Staff Ordering Physician: Brooke English APRN Veterinarian Assistant: Yoselin Garcia RDCS Attending Provider: Matt Swan MD Referring Physician: Tameka SMITH; Exam Type: CA echo doppler color flow Study Info Indications - SVT Complete two-dimensional, color flow and Doppler transthoracic echocardiogram is performed. Summary 1. Left ventricular chamber dimension is normal. 2. Left ventricular systolic function is normal, estimated at 55-60%. 3. Right ventricular systolic function is normal. 4. No significant valvular disease. Left Ventricle Left ventricular chamber dimension is normal. Left ventricular systolic function is normal, estimated at 55-60%. There is no increased left ventricular wall thickness. Right Ventricle Right ventricular chamber dimension is normal. Right ventricular systolic function is normal. Left Atria Left atrial chamber dimension is normal. Right Atria Right atrial chamber dimension is normal. Atrial Septum Intact interatrial septum visualized by color flow imaging. Aortic Valve The aortic valve is not well visualized. There is no aortic valve stenosis. There is no aortic valve regurgitation. Pulmonic Valve The pulmonic valve is not well visualized. There is no pulmonic regurgitation. Mitral Valve There is trace mitral valve regurgitation. Tricuspid Valve There is trace tricuspid valve regurgitation. Pericardium/Pleural There is no pericardial effusion. Inferior Vena Cava Normal inferior vena cava with <50% collapse upon inspiration consistent with elevated right atrial pressure, 8 mmHg. Aorta The aortic root size at the sinus of Valsalva is normal. Left Ventricular Outflow Tract Name Value Normal LVOT 2D LVOT Diameter 2.0 cm LVOT Doppler LVOT Peak Gradient 3 mmHg LVOT Mean Gradient 2 mmHg LVOT VTI 16 cm LVOT VTI/AV VTI Ratio 1.0 LVOT Stroke Volume 48 ml LVOT CO 4.8 l/min LVOT CI 2.8 l/min/m2 Pulmonic Valve Name Value Normal RVOT Doppler RVOT Peak Gradient 1 mmHg PV Doppler PV Peak Gradient 3 mmHg Mitral Valve Name Value Normal MV Doppler MV Decel [place] 404 cm/s2 MV PHT 50 ms MV Area (PHT) 4.4 cm2 4.0-5.0 MV Diastolic Function MV E Peak Velocity 70 cm/s MV A Peak Velocity 2 cm/s MV E/A 31.4 MV Decel Time 173 ms MV Annular TDI MV E/e' (Septal) 5.4 <=8.0 MV E/e' (Lateral) 4.6 <=8.0 MV E/e' (Average) 5.0 Tricuspid Valve Name Value Normal TV Regurgitation Doppler TR Peak Velocity 180 cm/s TR Peak Gradient 13 mmHg Estimated PAP/RSVP RA Pressure 8 mmHg <=5 PA Systolic Pressure 21 mmHg <36 RV Systolic Pressure 21 mmHg <36 Aortic Valve Name Value Normal AV Doppler AV Peak Velocity 99 cm/s AV Peak Gradient 4 mmHg AV Mean Gradient 2 mmHg AV VTI 17 cm AV Area (Cont Eq VTI) 2.9 cm2 >=3.0 AV Area (Cont Eq Derek) 2.8 cm2 AV Regurgitation 2D LVOT Area 3.0 cm2 Ventricles Name Value Normal LV Dimensions 2D/MM IVS Diastolic Thickness (2D) 0.7 cm 0.6-1.0 LVID Diastole (2D) 3.7 cm 3.8-5.2 LVIW Diastolic Thickness (2D) 0.9 cm 0.6-0.9 LVID Systole (2D) 2.1 cm 2.2-3.5 LVOT Diameter 2.0 cm LV Mass (2D Cubed) 81.01 g 67.00-162.00 LV Mass Index (2D Cubed) 47 g/m2 43-95 Relative Wall Thickness (2D) 0.47 LV Fractional Shortening/Ejection Fraction 2D/MM LV Fractional Shortening (2D) 41 % 27-45 LV EF (2D Teicholz) 73 % 54-74 LV Diastolic Volume (4C MOD) 82 ml LV EF (4C MOD) 66 % LV Diastolic Volume (2C MOD) 82 ml LV EF (2C MOD) 50 % LV Diastolic Volume (BP MOD) 83 ml 46-106 LV Diastolic Volume Index (BP MOD) 48 ml/m2 29-61 LV Systolic Volume (BP MOD) 37 ml 14-42 LV Systolic Volume Index (BP MOD) 21 ml/m2 8-24 LV EF (BP MOD) 55 % 54-74 LV Diastolic Length (4C) 6.6 cm LV Systolic Length (4C) 5.0 cm LV Stroke Volume (4C MOD) 54 ml Atria Name Value Normal LA Dimensions LA Volume (4C A-L) 35 ml LA Volume (BP A-L) 37 ml RA Dimensions RA Area (4C) 12.4 cm2 <=18.0 Report Signatures
--- NOTE | ~2024-09-26 | CT_ITS ---
EXAMINATION: CTA chest PE protocol DATE: 09/26/2024 15:16 CDT INDICATION: Supraventricular tachycardia. Pulmonary embolus suspected clinically TECHNIQUE: Computed tomographic angiography (CTA) of the chest was performed with 100 mL Omnipaque-35 0 intravenous contrast. The dose-length product was 190.95 mGy-cm. Maximum intensity projection 3D-re constructions of the aorta and other arteries were constructed by the technologist on a separate work station. COMPARISON: None. FINDINGS/OBSERVATIONS: PULMONARY ARTERIES: No filling defect is identified within the main or proximal pulmonary artery. The main pulmonary artery is not enlarged. THORACIC AORTA: No aneurysmal dilatation or dissection is present. The great vessels are intact LUNGS: Clear MEDIASTINUM: No morphologically suspicious or pathologically enlarged lymph nodes are identified with in the mediastinum or bilateral axilla. BONES OF THE CHEST: No acute fracture. No significant degenerative disease. No lytic or blastic lesions. HEART: The heart is of normal size, without pericardial effusion. UPPER ABDOMEN: The gallbladder is surgically absent. IMPRESSION: No pulmonary embolus. No thoracic aortic dissection. The lungs are clear Reviewed, dictated and finalized at location A.
--- NOTE | ~2024-09-26 | XR_ITS ---
EXAMINATION: XR chest 1V portable DATE: 09/26/2024 13:23 INDICATION: Tachyarrhythmia. TECHNIQUE: A single frontal view of the chest was obtained. COMPARISON: CT abdomen and pelvis 11/02/2022 FINDINGS: There is no pneumonia, pleural effusion, or pneumothorax. The heart size is normal. There a re changes of anterior fusion procedure in cervical spine. IMPRESSION: 1. No acute cardiopulmonary disease. Reviewed, dictated and finalized at location B.
--- NOTE | ~2024-09-26 | US_ITS ---
EXAMINATION: US venous doppler [facility] DATE: 09/26/2024 18:03 INDICATION: Cramping and pain TECHNIQUE: Grayscale ultrasound images without and with compression and Doppler ultrasound images of the bilateral lower extremity veins were obtained. COMPARISON: None. FINDINGS: The visualized portions of right common femoral vein, profunda (deep) femoral vein, femoral vein, pop liteal vein, peroneal veins, posterior tibial veins, and greater saphenous vein outflow are patent. The visualized portions of left common femoral vein, profunda femoral vein, femoral vein, popliteal v ein, peroneal veins, posterior tibial veins, and greater saphenous vein outflow are patent. IMPRESSION: 1. No deep venous thrombosis within the bilateral lower extremities. Reviewed, dictated and finalized at location A.
--- NOTE | 2024-09-26 11:59 | ECG_ITS ---
Test Date: 2024-09-26 12:19:59 Measurements Intervals [place] Rate: 192 P: 0 [place]: 0 QRS: 85 QRSD: 95 T: 199 QT: 228 QTc: 408 Interpretive Statements SUPRAVENTRICULAR TACHYCARDIA No previous ECG available for comparison Electronically Signed On 09-27-2024 16:38:42 CDT by Sharron Velasco M.D.
[2024-09-26] MEDS: ADENOSINE IV SOLN 6 MG/2 ML VIAL 12 MG (12:23)
[2024-09-26] MEDS: ADENOSINE IV SOLN 6 MG/2 ML VIAL 12 MG IV PUSH (12:25)
[2024-09-26] MEDS: LORazepam INJ (*CRX) 2 MG/ML VIAL 1 MG IV PUSH ×2 (12:30→13:52)
--- NOTE | 2024-09-26 12:37 | ED_ITS ---
HPI - Arrhythmia/Palpitations General Chief Complaint: Arrhythmia/Palpitations Stated Complaint: Feeling flutter in chest x 20min--Anxious Time Seen by Provider: 09/26/24 12:35 Source: patient Related Data Home Medications ?Medication ?Instructions ?Recorded ?Confirmed ?Last Taken ?Type Lactobacillus 2 cap PO DAILY 12/14/21 03/14/24 03/13/24 History acidophilus-Bifidobac.animalis 2.5 billion cell capsule (Daily Probiotic) ascorbic acid (vitamin C) 500 mg 500 mg PO DAILY 12/14/21 03/14/24 03/13/24 History capsule magnesium oxide 300 mg PO DAILY 12/14/21 03/14/24 03/13/24 History vitamin B complex 1 cap PO DAILY 12/14/21 03/14/24 03/13/24 History riboflavin (vitamin B2) 400 mg 400 mg PO DAILY 05/26/22 03/14/24 03/13/24 History tablet cholecalciferol (vitamin D3) 250 250 mcg PO DAILY 11/17/22 03/14/24 03/13/24 History mcg (10,000 unit) capsule drospirenone (contraceptive) 4 mg 1 tablet PO DAILY 11/17/22 03/14/24 03/13/24 History (28) tablet (Slynd) loratadine 10 mg tablet (Claritin) 10 mg PO PRN PRN Allergy Symptoms 02/27/24 03/14/24 03/13/24 History Allergies Allergy/AdvReac Type Severity Reaction Status Date / Time latex AdvReac Intermediate IRRITATION Verified 09/26/24 13:22 WITH CONDOMS metoclopramide AdvReac Intermediate Hives,JITTE Verified 09/26/24 13:22 RY ubrogepant (From Ubrelvy) AdvReac Intermediate Rash Verified 09/26/24 13:22 azithromycin AdvReac Mild Diarrhea Verified 09/26/24 13:22 levofloxacin AdvReac Mild Diarrhea Verified 09/26/24 13:22 sulfamethoxazole AdvReac Mild Diarrhea Verified 09/26/24 13:22 trimethoprim AdvReac Mild Diarrhea Verified 09/26/24 13:22 [facility] Past Medical History Medical History (Updated 09/26/24 @ 14:27 by Nelson Castillo MD) Migraine, menstrual Allergic rhinitis mold, trees Postprandial nausea Encounter for surgical aftercare following surgery on the digestive system Diarrhea Biliary dyskinesia Dyspepsia Anxiety Surgical History Surgical History History of cholecystectomy H/O cervical spine surgery Social History Social History Smoking status: Never smoker Second hand tobacco smoke exposure: No Alcohol intake: never Substance use: never Substance use type: does not use Lack of Transportation: No Lack of Food: Never True Current Housing: I Have Housing Concerned About Future Housing: No Difficulty Paying Gas/Electric Bills: No Difficulty Paying for Meds: No Currently Unemployed: No Education: Master's Degree or Higher Difficulty w/ Childcare or Family Care: No Living arrangements: with family Occupation/Education: occupation Gender identity (if verbalized by the patient): Female Sexual Orientation (if Verbalized by the Patient): Straight or Heterosexual Spiritual care concerns: No Course Consultations Consultation #1: DR CAM Date: 09/26/24 Vital Signs Vital signs: Vital Signs Temperature 36.6 C 09/26/24 12:37 Pulse Rate 215 H 09/26/24 12:37 Respiratory Rate 22 H 09/26/24 12:37 Blood Pressure 136/77 09/26/24 12:37 Pulse Oximetry 100 09/26/24 12:37 Temperature 36.6 C 09/26/24 12:37 Pulse Rate 130 H 09/26/24 14:23 Respiratory Rate 20 09/26/24 13:15 Blood Pressure 118/76 09/26/24 13:15 Pulse Oximetry 100 09/26/24 13:15 MDM - Arrhythmia/Palpitations MDM Narrative Medical decision making narrative: Patient came to the ED with fast heartbeat, restlessness Vital signs showing heart rate of 215 beats per minute, respiration 22 otherwise within normal limit Physical examination showing anxious patient, with tachycardia, monitor showing SVT Differential diagnosis include tachyarrhythmia, SVT, electrolyte imbalance, dehydration, stress related symptoms, hyperthyroidism, coronary artery disease, valvular abnormality Blood workup today included CBC, CMP, troponin, TSH, showed AST 52, ALT 40 otherwise within normal limit. WAITING FOR TSH LEVEL Chest x-ray on arrival showed no acute abnormalities EKG on arrival showed SVT at 192 beats per minute Patient received adenosine 6 and 12 mg, converted to sinus tachycardia, followed by Ativan 1 mg IV Patient heart rate was still in the 140 sinus tachy, 5 mg Lopressor IV every 5 minutes x3 was given, +1 mg of Ativan IV, HEART RATE WENT DOWN TO [address] Cam was notified, RECOMMENDS NO FURTHER MEDICATION AT THIS TIME ADMIT TO HOSPITALIST Differential Diagnosis Differential diagnosis: Likely other ( ABOVE) Medical Records Attestation: I reviewed the patient's medical records. Lab Data Attestation: I reviewed the patient's lab results. 09/26/24 12:54 09/26/24 12:54 Labs: Lab Results 09/26/24 09/26/24 Range/Units 12:54 12:54 WBC 6.3 (4.5-10.0) K/mm3 RBC 4.84 (4.2-5.4) M/mm3 Hgb 14.6 (12.0-15.0) g/dL Hct 43.8 (37.0-47.0) % MCV 90.5 (80-100) fl MCH 30.2 (26-34) pg MCHC 33.3 (32-36) g/dl RDW 12.1 (11.5-14.5) % Plt Count 193 (150-375) k/mm3 MPV 11.1 H (7.4-10.4) fl Immature Gran % (Auto) 0.2 (0-0.5) % Neut % (Auto) 66.0 (45.5-73.1) % Lymph % (Auto) 23.8 (18.3-44.2) % Page % (Auto) 8.9 H (2.6-8.5) % Eos % (Auto) 0.3 (0-4.4) % Baso % (Auto) 0.8 (0.2-1.2) % Lymph # (Auto) 1.49 (0.9-3.2) K/mm3 Page # (Auto) 0.6 (0.1-0.6) K/mm3 Eos # (Auto) 0.0 (0-0.3) K/mm3 Baso # (Auto) 0.1 (0.0-0.1) K/mm3 Abs Immat Gran (auto) 0.01 (0.00-0.031) K/mm3 Absolute Neuts (auto) 4.1 (1.3-6.7) K/mm3 Absolute Nucleated RBC 0.000 (0.0-0.012) K/mm3 Nucleated RBC % 0.0 (0.0-0.2) % PT 13.6 (11.1-14.7) Seconds INR 1.0 APTT 24.2 (22.3-36.8) Seconds Sodium 139 (137-145) mmol/L Potassium 3.7 (3.4-5.0) mmol/L Chloride 104 (98-107) mmol/L Carbon Dioxide 23 (22-30) mmol/L Anion Gap 12 (4-12) mmol/L BUN 13 (7-17) mg/dL Creatinine 0.88 (0.7-1.0) mg/dL Estim Creat Clear Calc 65 ml/min Estimated GFR > 60 (59 - ) Glucose 121 H (65-110) mg/dL Calcium 9.2 (8.4-10.2) mg/dL Magnesium 1.7 (1.6-2.3) mg/dL Total Bilirubin 0.6 (0.2-1.3) mg/dL AST 52 H (14-36) U/L ALT 40 H (6-35) U/L Alkaline Phosphatase 63 (38-126) U/L Troponin I < 0.012 (0.000-0.034) ng/mL NT-Pro-B Natriuret Pep 62 (19.9-100) pg/mL Total Protein 8.0 (6.3-8.2) g/dL Albumin 4.7 (3.5-5.1) g/dL TSH 3.800 Pending (0.465-4.680) uIU/mL Imaging Data Radiologist's impression: Impressions Chest X-Ray 09/26/24 13:32 IMPRESSION: 1. No acute cardiopulmonary disease. ECG Data EKG #1: Attestation: I personally reviewed and interpreted this ECG as follows: ECG completion date: 09/26/24 Interpretation: SVT 192 BEATS PER MINUTE, ABNORMAL EKG, ABNORMAL EKG, NO PREVIOUS EKG AVAILABLE FOR COMPARISON EKG #2: Attestation: I personally reviewed and interpreted this ECG as follows: ECG completion date: 09/26/24 Interpretation: SINUS TACHYCARDIA AT 123 BEATS PER MINUTE, NONSPECIFIC T-WAVE ABNORMALITY, ABNORMAL EKG Critical Care Time Critical Care Time Critical Care Time: Yes Total Critical Care Time: 30 Discharge Plan Discharge Patient Disposition: Still a Patient Patient Language: [place] Prescriptions: No Action fluticasone propionate [Flonase Allergy Relief] 50 mcg/actuation spray,suspension 2 spray intranasal DAILY Qty: 16 5RF Rx Instructions: administer 2 sprays into each nostril daily Zavzpret 10 mg/actuation spray,non-aerosol 10 mg intranasal ONCE PRN (Reason: migraine headache) Qty: 6 0RF Rx Instructions: administer into one nostril as a single dose cholecalciferol (vitamin D3) 250 mcg (10,000 unit) capsule 250 mcg PO DAILY Slynd 4 mg (28) tablet 1 tablet PO DAILY vitamin B complex Capsule 1 cap PO DAILY magnesium oxide 400 mg magnesium Capsule 300 mg PO DAILY ascorbic acid (vitamin C) 500 mg Capsule 500 mg PO DAILY Daily Probiotic 2.5 billion cell Capsule 2 cap PO DAILY loratadine [Claritin] 10 mg tablet 10 mg PO PRN PRN (Reason: Allergy Symptoms) riboflavin (vitamin B2) 400 mg tablet 400 mg PO DAILY Follow-up/Referrals: Layla Morel PA-C [Primary Care Provider] -
[2024-09-26 13:02] LABS: Basophils Absolute Auto 0.1 K/mm3 (0.0-0.1); Basophils Percent Auto 0.8 % (0.2-1.2); Eosinophils Percent Auto 0.3 % (0-4.4); Hematocrit 43.8 % (37.0-47.0); Hemoglobin 14.6 g/dL (12.0-15.0); Immature Granulocyte Absolute 0.01 K/mm3 (0.00-0.031); Immature Granulocyte Percent A 0.2 % (0-0.5); Lymphocytes Absolute Auto 1.49 K/mm3 (0.9-3.2); Lymphocytes Percent Auto 23.8 % (18.3-44.2); Mean Corpuscular HGB Conc 33.3 g/dl (32-36); Mean Corpuscular Hemoglobin 30.2 pg (26-34); Mean Corpuscular Volume 90.5 fl (80-100); Mean Platelet Volume 11.1 fl (7.4-10.4); Monocytes Absolute Auto 0.6 K/mm3 (0.1-0.6); Monocytes Percent Auto 8.9 % (2.6-8.5); Neutrophils Absolute Auto 4.1 K/mm3 (1.3-6.7); Platelet Count Result 193 k/mm3 (150-375); Red Blood Count 4.84 M/mm3 (4.2-5.4); Red Cell Distribution Width 12.1 % (11.5-14.5); White Blood Count 6.3 K/mm3 (4.5-10.0)
[2024-09-26 13:15] LABS: Alanine Aminotransferase 40 U/L (6-35); Albumin Level 4.7 g/dL (3.5-5.1); Alkaline Phosphatase 63 U/L (38-126); Anion Gap 12 mmol/L (4-12); Aspartate Amino Transferase 52 U/L (14-36); Bilirubin,Total 0.6 mg/dL (0.2-1.3); Blood Urea Nitrogen 13 mg/dL (7-17); Calcium 9.2 mg/dL (8.4-10.2); Carbon Dioxide 23 mmol/L (22-30); Chloride 104 mmol/L (98-107); Estimated CRCL calculation 65 ml/min; Estimated Glomerular Filt Rate > 60; Glucose 121 mg/dL (65-110); Potassium 3.7 mmol/L (3.4-5.0); Sodium 139 mmol/L (137-145)
--- NOTE | 2024-09-26 13:17 | P.HP_ITS ---
H&P: HPI History of Present Illness Date/Time: 09/26/24 13:17 Chief Complaint: palpitations Narrative: This is a 49 year old female with a significant past medical history of migraines, anxiety who presented to the hospital with complaints of palpitations. Patient reports that she was at [facility] moving her grandpa in when she started experiencing indigestion followed by fast palpitations. She states she felt hot and short of breath causing her feel panicked. She denied any recent illness or exposure to sick contacts. She denies any fever, chills, nausea, vomiting, diarrhea, abdominal pain, chest pain. She also reported having palpitations in the past but none that felt like this or lasted this long. She does take progesterone based control and also reported some cramping and pain in her legs recently. Work up in the hospital included a chest x-ray which was negative for any acute cardiopulmonary disease. CTA of the chest was negative for PE, thoracic aortic dissection, or any acute cardiopulmonary process. Initial labs shown a normal WBC 6.3, BG 121, AST 52, ALT 40, Troponin 0.012, TSH 3.800. EKG shown SVT with lateral PR which appears to be acute with a rate of 192, QTc 408. D-dimer was <0.27. Patient was given a dose 6 of adenosine without any improvement in her heart rate. They then gave 12mg of adenosine and heart rate came down to the 120's. She was also given a dose of Ativan while in the ER. Cardiology was consulted. Review of Systems Review of Systems: All systems reviewed & are unremarkable except as noted in HPI and below PMFSH Past Medical History Medical History Migraine, menstrual Allergic rhinitis mold, trees Postprandial nausea Encounter for surgical aftercare following surgery on the digestive system Diarrhea Biliary dyskinesia Dyspepsia Anxiety Surgical History Surgical History History of cholecystectomy H/O cervical spine surgery Social History Social History Smoking status: Never smoker Second hand tobacco smoke exposure: No Alcohol intake: never Substance use: never Substance use type: does not use Do You Feel Safe in your Home?: Yes Lack of Transportation: No Lack of Food: Never True Current Housing: I Have Housing Concerned About Future Housing: No Difficulty Paying Gas/Electric Bills: No Difficulty Paying for Meds: No Currently Unemployed: No Education: Master's Degree or Higher Difficulty w/ Childcare or Family Care: No Living arrangements: with family Occupation/Education: occupation Gender identity (if verbalized by the patient): Female Sexual Orientation (if Verbalized by the Patient): Straight or Heterosexual Spiritual care concerns: No Meds Home Medications and Allergies Home Medications ?Medication ?Instructions ?Recorded ?Confirmed ?Type Lactobacillus 2 cap PO DAILY 12/14/21 09/26/24 History acidophilus-Bifidobac.animalis 2.5 billion cell capsule (Daily Probiotic) ascorbic acid (vitamin C) 500 mg 500 mg PO DAILY 12/14/21 09/26/24 History capsule magnesium oxide 300 mg PO DAILY 12/14/21 09/26/24 History vitamin B complex 1 cap PO DAILY 12/14/21 09/26/24 History riboflavin (vitamin B2) 400 mg 400 mg PO DAILY 05/26/22 09/26/24 History tablet cholecalciferol (vitamin D3) 250 250 mcg PO .pm 11/17/22 09/26/24 History mcg (10,000 unit) capsule drospirenone (contraceptive) 4 mg 1 tablet PO DAILY 11/17/22 09/26/24 History (28) tablet (Slynd) fluticasone propionate 50 2 spray intranasal DAILY #16 grams 11/21/23 09/26/24 Rx mcg/actuation nasal spray,suspension (Flonase Allergy Relief) zavegepant 10 mg/actuation nasal 10 mg intranasal ONCE PRN migraine 11/29/23 09/26/24 Rx spray (Zavzpret) headache #6 ea loratadine 10 mg tablet (Claritin) 10 mg PO PRN PRN Allergy Symptoms 02/27/24 09/26/24 History Allergies Allergy/AdvReac Type Severity Reaction Status Date / Time latex AdvReac Intermediate IRRITATION Verified 09/26/24 13:22 WITH CONDOMS metoclopramide AdvReac Intermediate Hives,JITTE Verified 09/26/24 13:22 RY ubrogepant (From Ubrelvy) AdvReac Intermediate Rash Verified 09/26/24 13:22 azithromycin AdvReac Mild Diarrhea Verified 09/26/24 13:22 levofloxacin AdvReac Mild Diarrhea Verified 09/26/24 13:22 sulfamethoxazole AdvReac Mild Diarrhea Verified 09/26/24 13:22 trimethoprim AdvReac Mild Diarrhea Verified 09/26/24 13:22 Vital Signs Vital Signs - 24 hr 09/26/24 12:37 Temperature 97.8 F Pulse Rate 215 H Respiratory Rate 22 H Blood Pressure 136/77 Pulse Oximetry 100 Exam Narrative: General: In no acute distress, well nourished Head: atraumatic, no encephalopathy Eyes: EOMI, PERRLA, sclera clear ENT: moist mucous membranes, nasal passages clear Neck: supple, no JVD, no adenopathy, trachea midline Cardiac: Normal S1 and S2. No murmur, gallops or friction rubs, peripheral pulses intact. Respiratory: Lungs clear to auscultation, no adventitious lung sounds Gastrointestinal: soft, non-distended, non-tender, normoactive bowel sounds. : voiding without difficulty. Extremities: moves all extremities well, no edema, good ROM, strength 5/5 Skin: clean, dry, intact. No wounds or lesions. Neuro: Alert and oriented x4, cranial nerves intact, no neuro deficits. Psych: normal mood, normal affect, interactive H&P: Results Labs Labs: Short CBC 09/26/24 Range/Units 12:54 WBC 6.3 (4.5-10.0) K/mm3 Hgb 14.6 (12.0-15.0) g/dL Hct 43.8 (37.0-47.0) % Plt Count 193 (150-375) k/mm3 [facility] 09/26/24 12:54 Sodium 139 Potassium 3.7 Chloride 104 Carbon Dioxide 23 BUN 13 Creatinine 0.88 Glucose 121 H Calcium 9.2 Liver Function 09/26/24 Range/Units 12:54 Total Bilirubin 0.6 (0.2-1.3) mg/dL AST 52 H (14-36) U/L ALT 40 H (6-35) U/L Alkaline Phosphatase 63 (38-126) U/L Albumin 4.7 (3.5-5.1) g/dL Imaging Chest x-ray: Radiologist's impression: EXAMINATION: XR chest 1V portable DATE: 09/26/2024 13:23 INDICATION: Tachyarrhythmia. TECHNIQUE: A single frontal view of the chest was obtained. COMPARISON: CT abdomen and pelvis 11/02/2022 FINDINGS: There is no pneumonia, pleural effusion, or pneumothorax. The heart size is normal. There are changes of anterior fusion procedure in cervical spine. IMPRESSION: 1. No acute cardiopulmonary disease. Reviewed, dictated and finalized at location B. Assessment and Plan Assessment and plan (1) SVT (supraventricular tachycardia): Code(s): I47.10 - Supraventricular tachycardia, unspecified Status: Acute Assessment and Plan: * chest x-ray was negative * initial EKG reading SVT with lateral myocardial infarction, rate of 192, QTC 408 * post EKG shown sinus tachycardia T wave abnormality with a rate of 123, QTc 436 * patient was given 6 mg IV push adenosine while in the ED with no rate change, she was given an additional 12 mg IV push adenosine and was able to get her heart rate down into the 120's * initial troponin<0.012>0.022 * Admit to IMU * Cardiology consulted in place patient on metoprolol extended release 12.5 mg p.o. daily * Patient reports leg cramping and pain recently and is on control however it is progesterone based, not estrogen based. * D-dimer was less than 0.27 * CTA of the chest was negative for PE, aortic dissection, any acute cardiopulmonary process * echocardiogram results pending * Doppler study was negative for DVT within the bilateral lower extremities (2) Elevated liver enzymes: Code(s): R74.8 - Abnormal levels of other serum enzymes Status: Acute Assessment and Plan: * AST 52, ALT 40 * Continue to trend (3) Anxiety: Code(s): F41.9 - Anxiety disorder, unspecified Status: Acute Assessment and Plan: * patient given 2 doses of 1 mg IV push Ativan while in the ED Quality VTE Prophylaxis VTE prophylaxis: pharmacologic ordered Hospitalist MIPS Advance Care Plan I have confirmed that the patient's Advanced Care Plan is present, code status is documented, or surrogate decision maker is listed in patient medical record.: Yes Medication Reconciliation I have utilized all available resources to obtain, update and review the patients current medications (includes all prescriptions, OTC, herbals, cannabis, and nutritional supplements).: Yes
[2024-09-26 13:27] LABS: NT Pro B Type Natriuretic Pept 62 pg/mL (19.9-100); Troponin I < 0.012 ng/mL (0.000-0.034)
[2024-09-26 13:40] LABS: Prothrombin Time 13.6 Seconds (11.1-14.7)
[2024-09-26 13:41] LABS: Partial Thromboplastin Time 24.2 Seconds (22.3-36.8)
--- OUTSIDE RECORDS SUMMARY | 2024-09-26 13:45 | XMS_ITS | Encounter Summary ---
Author Organization [facility] Address [address] [place] [address] Phone Care Team Providers Care Tanbark Peeler Name Role Phone Albert Burns MD Primary Care Provider [phone] Encounter Details Date Type Department Care Team (Late st Contact Info) Description 08/13/2019 Telephone [facility] Scheduling [address] [place] [address] Que Pollard MD [address] [place] [address] Social History Tobacco Use Types Packs/Day Years Used Date Smoking Tobacco: Never Smokeless Tobacco: Never Comments Unknown Sex and Gender Information Value Date Recorded Sex Assigned at Not on file Legal Sex Female 6:54 AM [employer]ODE [employer] Gender Identity Not on file Sexual Orientation Not on file documented as of this encounter Plan of Treatment Not on file documented as of this encounter Visit Diagnoses Not on filedocumented in this encounter Care Teams Tanbark Peeler Relationship Specialty Start Date End Date Albert Burns MD [address] [place] [id number] PCP - General Internal Medicine 07/13/18 documented as of this encounter
--- OUTSIDE RECORDS SUMMARY | 2024-09-26 13:45 | XMS_ITS | Patient Health Record ---
Author Organization [facility] Address [address] [place] [address] Care Team Providers Care Major Assembler Name Role Phone Albert Burns MD Primary Care Provider Unavailab marlon LAURA MD, SILVANA Unavailable [phone] Yolanda Koenig Unavailable Unavailable ALLERGIES Allergen (clinical drug ingredient) Drug/Non Drug Allergy documented on EMR Reaction Allergy Type Onset Date Status metoclopramide Reglan Unknown Drug Allergy Ac tive REASON FOR REFERRAL No Information MEDICATIONS Medication SIG (Take, Route, Frequency, Duration) Notes Start Date End Date Status Aviane 0.1-20 MG-MCG 1 tablet Orally Onc e a day for 28 day(s) Active LORazepam 0.5 MG 1 tab Orally PRN Active Hyoscyamine Sulfate ER 0.375 MG 1 tablet Orally BID for 30 day(s) 07/12/2018 Active Florajen3 - as directed Orally Active Hyoscyamine Sulfate SL 0.125 MG 1 tablet under the tongue and allow to dissolve as needed Sublingual every 4-6 hrs as needed for pain for 30 days 06/05/2018 Not-Taking SOCIAL HISTORY Tobacco Use: Social History Observation Description Date Details (start date - stop date) Never Smoker NA - NA Sex Assigned At : Social History Observation Description Sex Assigned At Unknown Tobacco Use/Smoking Question Answer Notes Are you a nonsmoker PROBLEMS Problem Type ICD Code Onset Dates Problem Status W/U Status Risk SNOMED Code Notes Problem Chest pain, unspecified (R07.9) Active confirmed Chest pain (16532410) Problem Epigastric pain (R10.13) Active confirmed Epigastric pain (10389190) Problem Nausea (R11.0) Active confirmed Nausea (480425243) Problem Abnormal weight loss (R63.4) Active confirmed Abnormal weight loss (724334296) Problem Helicobacter [facility] the [facility] (B96.81) Active confirmed Helicobacter pylori gastrointestinal tract infection (067277606) PLAN OF TREATMENT Pending Test Test Name Order Date Esophagogastroduodenoscopy (EGD) 018 Esophagogastroduodenoscopy (EGD) 018 Insurance Providers Payer Name Payer Address Payer Phone Subscriber Number Group Number Insured Name Patient Relationship to Insured Coverage Start Date Coverage End Date [facility] [address] [place], [place] [id number] Mary Leger Self - patient is the insured MEDICAL (GENERAL) HISTORY Medical History History ICD Code Anxiety Biliary dyskinesia Migraines H. 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 pylori. Duodenal bx neg. Cholecystectomy 12/15/2017 Lap for endometriosis 2012 Neck surgery 2009
--- OUTSIDE RECORDS SUMMARY | 2024-09-26 13:45 | XMS_ITS | Referral Summary ---
Author Organization [facility] Address [address] [place] [address] Care Team Providers Care Warehouse Picker Name Role Phone Marge Medina MD Primary Care Provider [phone] Source Comments [facility],non-owned Affiliates and Associated Physician Practices is amultiple site organization consisting of ambulatory clinics and hospital sitesin [place] and [place]. This disclosure is being madepursuant to the Care Everywhere program and may not contain all information available regarding this patient. Last updated 18.[facility] Allergies No known active allergies Social History Tobacco Use Types Packs/Day Years Used Date Smoking Tobacco: Never Assessed Sex and Gender Information Value Date Recorded Sex Assigned at Not on file Gender Identity Not on file Sexual Orientation Not on file Plan of Treatment Not on file Care Teams Warehouse Picker Relationship Specialty Start Date End Date Marge Medina MD [address] [address] [facility] - General 12/19/17
--- OUTSIDE RECORDS SUMMARY | 2024-09-26 13:45 | XMS_ITS | Referral Summary ---
Author Organization [facility] Address [address] [place] [address] Care Team Providers Care Instructional Coordinator Name Role Phone Albert Burns MD Primary Care Provider [phone] Allergies Active Allergy Reactions Criticality Noted Date Comments Metoclopramide Itching,Unknown,Hives Medium 07/12/2018 Medications B complex 56-lhchh-U-biot -zinc [id number] yg-ft-clu-mg tablet Take by mouth Active cetirizine (ZyrTEC) 10 mg chewable tablet Take 10 mg by mouth daily Active acidophilus-pec tin, citrus 100 million cell-10 mg capsule Take by mouth Active cholecalciferol (VITAMIN D-3) 400 unit capsule Active magnesium oxide (MAG-OX) 250 mg (150.8 mg elemental) tablet 250 mg daily Active ascorbic acid (VITAMIN C) 100 mg tablet Take 5 tablets (500 mg total) by mouth daily Active naproxen (NAPROSYN) 500 mg tablet TAKE 1 TABLET BY MOUTH TWICE DAILY NEEDED FOR NAUSEA 02/13/2023 Active norethindrone (MICRONOR) 0.35 mg tablet Take 1 tablet (0.35 mg total) by mouth daily 02/16/2023 Active LORazepam (ATIVAN) 0.5 mg tablet as needed Active riboflavin, vitamin B2, 25 mg tablet Take 100 mg by mouth daily Active Active Problems Problem Noted Date Diagnosed Date Polyarthralgia 05/08/2023 Overview (05/17/2023): Labs 05/08/23: CBC nl, CMP nl, CRP 0.37mg/dL, ESR 2 AVISE 05/08/23: CHET by glenys only, neg by IFA, neg anti-CarP XR 05/12/23: B/l hands: mild OA left 1st MCP joint. R hip: normal SI joints: normal B/l feet: minimal to mild polyarticular OA in the mid and forefoot most prominent at TMT and DIP joints. 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 Assessment & Plan (05/26/2023 9:21 AM POOL TABLE MECHANIC): 47-year-old female with PMHx of anxiety, migraines, lumbago, and myofascial pain c/o right lateral epicondylitis, low back pain with radiating pain into the right lower extremity, and progression of generalized myofascial pain. C/o AM stiffness all day that does not improve with activity, NSAIDs, or systemic steroids. C/o mouth sores 1-2x/year and dry eyes and skin. 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 Rheumatological work up with AVISE panel was unremarkable for any autoantibodies. ESR/CRP were normal as well. XR showed minimal to mild polyarticular OA in both feet and mild left 1st MCP joint OA but otherwise showed normal findings in the right hand, right hip, and SI joints. With unremarkable serologies and imaging showing mild DJD, there is no evidence to suggest a rheumatologic disease at this time. Hypermobility noted on exam could be exacerbating myofascial pain and explain earlier onset DJD of the spine. Would likely consider seeing pain management for spinal injections as she has failed conservative management with NSAIDs, PT, chiro, and massage for RLE radicular pain. Follow up as needed. Seen with Dr. Taylor. Assessment & Plan (05/08/2023 1:06 PM CDT): 47-year-old female with PMHx of anxiety, migraines, lumbago, and myofascial pain c/o right lateral epicondylitis, low back pain with radiating pain into the right lower extremity, and progression of generalized myofascial pain. Tenderness is noted in the PIP joints and MTP joints bilaterally without any obvious synovitis. C/o AM stiffness all day that does not improve with activity, NSAIDs, or systemic steroids. C/o mouth sores 1-2x/year and dry eyes and skin. 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 Symptoms and exam are not overly suspicious for a rheumatologic disease. Hypermobility noted on exam could be exacerbating myofascial pain and explain earlier onset DJD of the spine. Would likely consider seeing pain management for spinal injections as she has failed conservative management with NSAIDs, PT, chiro, and massage for RLE radicular pain. Will order appropriate serologies and radiographs to further evaluate. Follow up in 2 weeks. Sooner if needed. Seen with Dr. Taylor. ERRONEOUS ENCOUNTER--DISREGARD 09/26/2022 Abnormal weight loss 09/11/2020 Chest pain 09/11/2020 Epigastric pain 09/11/2020 Helicobacter pylori gastrointestinal tract infec tion 09/11/2020 Nausea 09/11/2020 Right ear pain 09/08/2020 Myofascial pain 08/23/2019 Migraine without aura and wi thout status migrainosus, not intractable 08/23/2019 Chronic bilateral low back pain without sciatica 08/23/2019 Immunizations Immunization Administration Dates Next Due Influenza, Trivalent, Preservative Free, Intramu scular 08/06/2012 Social History Tobacco Use Types Packs/Day Years Used Date Smoking Tobacco: Never Smokeless Tobacco: Never Tobacco Cessation:Counseling Given: Not Answered Alcohol Use Standard Drinks/Week Comments Never 0 (1 standard drink = 0.6 oz pur e alcohol) AUDIT-C Answer Date Recorded Frequency of Alcohol Consumption Never 08/23/2019 Average Number of Drinks Not on file 020 Frequency of Binge Drinking Not on file 01/2020 Personal Safety Answer Date Recorded Getting School Help Needed Not on file 09/29 Comments Unknown Sex and Gender Information Value Date Recorded Sex Assigned at Not on file Legal Sex Female 6:54 AM POOL TABLE MECHANIC Gender Identity Not on file Sexual Orientation Not on file Last Filed Vital Signs Vital Sign Reading Time Taken Comments Blood Pressure 124/80 05/26/2023 8:54 AM POOL TABLE MECHANIC Pulse 82 05/26/2023 8:54 AM POOL TABLE MECHANIC Temperature 36.7 C (98.1 F) 03/10/2021 10:49 AM CDT Respiratory Rate 18 08/23/2019 8:28 AM POOL TABLE MECHANIC Oxygen Saturation 98% 05/26/2023 8:54 AM POOL TABLE MECHANIC Inhaled Oxygen Concentration - - Weight 66 kg (145 lb 6.4 oz) 05/26/2023 8:54 AM POOL TABLE MECHANIC Height 165.1 cm (5' 5 ) 05/26/2023 8:54 AM POOL TABLE MECHANIC Body Mass Index 24.2 05/26/2023 8:54 AM POOL TABLE MECHANIC Plan of Treatment Not on file Goals Goal Patient Goal Type Associated Problems Recent Progress Patient-Stated? Author CCM Chronic Pain Care Plan Chronic Care Management Theresa Blake, RN Note: Problem: Chronic Pain Goals: 1. Minimize further functional decline 2. Maximize quality of life 3. Control pain Strategies: - Activity/exercise program recommendation - Conservative stepwise pain medicine strategy with multi-disciplinary approach - Recommend healthy lifestyle strategies and compensatory methods as needed Medical Devices Implanted Type Area Admitting Manager Device Identifier Shelf Expiration Date Model / Serial / Lot Titanium N/A: Neck Description:Titanium implant in C4-5, C5-6 Insurance [facility] ttwick HMO Care Teams Instructional Coordinator Relationship Specialty Start Date End Date Albert Burns MD [address] [place] [id number] PCP - General Internal Medicine 07/13/18
--- OUTSIDE RECORDS SUMMARY | 2024-09-26 13:45 | XMS_ITS | Encounter Summary ---
Author Organization [facility] Address [address] [place] [address] Care Team Providers Care Coil Finisher Name Role Phone Albert Burns MD Primary Care Provider [phone] Encounter Details Date Type Department Care Team (Late st Contact Info) Description 12/22/2018 Abstract [facility] CONVERSION [address] [place] [address] , Generic Conversion, Social History Tobacco Use Types Packs/Day Years Used Date Smoking Tobacco: Never Assessed Comments Unknown Sex and Gender Information Value Date Recorded Sex Assigned at Not on file Legal Sex Female 8:27 PM CDT Gender Identity Not on file Sexual Orientation Not on file documented as of this encounter Plan of Treatment Not on file documented as of this encounter Visit Diagnoses Not on filedocumented in this encounter Additional Health Concerns Infection Onset Date Last Indicated Resolved Time COVID-19 Rule Out 07/29/2021 07/29/2021 07/29/2021 4:16 PM STAMP ANALYST documented as of this encounter Care Teams Coil Finisher Relationship Specialty Start Date End Date Albert Burns MD [address] [place] [id number] PCP - General INTERNAL MEDICINE 08/01/20 documented as of this encounter
--- OUTSIDE RECORDS SUMMARY | 2024-09-26 13:45 | XMS_ITS | Clinical Summary ---
Author Organization [facility] Address [address] [place] [address] Care Team Providers Care Furnace Maintenance Name Role Phone Albert Burns MD Primary Care Provider [phone] Allergies Active Allergy Reactions Criticality Noted Date Comments Metoclopramide Itching,Unknown,Hives Medium 07/12/2018 Medications B complex 12-wfhzu-V-biot -zinc [id number] tv-aq-pew-mg tablet Take by mouth Active cetirizine (ZyrTEC) [...] coalition). Assessment & Plan (05/26/2023 9:21 AM BEHAVIORAL ANALYST): 47-year-old female with PMHx of anxiety, migraines, [...] Influenza, Trivalent, Preservative Free, Intramu scular 08/06/2012 Surgical History Surgery Date Site/Laterality Comments NECK SURGERY 2009 CHOLECYSTECTOMY 07/17/2017 - 07/16/2018 ENDOMETRIAL BIOPSY 07/17/2012 - 07/16/2013 TUBAL LIGATION 07/17/2021 - 07/16/2022 Medical History Medical History Date Comments Anxiety Heart murmur Headache Family History Medical History Relation Name Comments Arthritis Father Devaughn Hypertension Father Devaughn Hyperlipidemia Maternal Grandmother Radha Strong Memory loss Maternal Grandmother Radha Strong Arthritis Mother Angelica Hyperlipidemia Mother Angelica Hypertension Mother Angelica Migraines Mother Angelica Lung disease Other Cancer Paternal Grandmother Michaela Heart disease Paternal Grandmother Michaela Migraines Sister 1 Miscarriages / Stillbirths Sister 2 Sheila defects Son Donnie Leger Relation Name Status Comments Father Devaughn Alive Maternal Grandmother Radha Strong Mother Angelica Alive Other Paternal Grandmother Michaela Sister 1 Sister 2 Sheila Son Donnie Wildmary lou Social History Tobacco Use Types Packs/Day Years [...] on file Legal Sex Female 6:54 AM BEHAVIORAL ANALYST Gender Identity Not on file Sexual Orientation Not on file Obstetrics History Last Filed Vital Signs Vital Sign Reading Time Taken Comments Blood Pressure 124/80 05/26/2023 8:54 AM BEHAVIORAL ANALYST Pulse 82 05/26/2023 8:54 AM BEHAVIORAL ANALYST Temperature 36.7 C (98.1 F) 03/10/2021 10:49 AM CDT Respiratory Rate 18 08/23/2019 8:28 AM BEHAVIORAL ANALYST Oxygen Saturation 98% 05/26/2023 8:54 AM BEHAVIORAL ANALYST Inhaled Oxygen Concentration - - Weight 66 kg (145 lb 6.4 oz) 05/26/2023 8:54 AM BEHAVIORAL ANALYST Height 165.1 cm (5' 5 ) 05/26/2023 8:54 AM BEHAVIORAL ANALYST Body Mass Index 24.2 05/26/2023 8:54 AM BEHAVIORAL ANALYST Plan of Treatment Health Maintenance Due Date Last Done Comments Breast Cancer Screening-Mammogram 1977 Cervical Cancer Screening 1977 Colon Cancer Screening-Colonoscopy 1977 Depression Screening 1977 Hepatitis C Screening 1977 DTaP/Tdap/Td Vaccine (1 - Tdap) 1988 Hepatitis B Screening 09/17/1995 Regular Well Visit/Exam 18-64 09/17/1995 Influenza Vaccine (#1) 2024 08/06/2012 Pneumococcal vaccine <65 Aged Out No longer eligible based on patient's age to complete this topic Goals Goal Patient Goal Type Associated Problems Recent Progress Patient-Stated? Author CCM Chronic Pain Care Plan Chronic Care Management No Theresa Garcia, RN Note: Problem: Chronic Pain Goals: 1. Minimize further functional decline 2. Maximize quality of life 3. Control pain Strategies: - Activity/exercise program recommendation - Conservative stepwise pain medicine strategy with multi-disciplinary approach - Recommend healthy lifestyle strategies and compensatory methods as needed Medical Devices Implanted Type Area Engraver Steel Plate Device Identifier Shelf Expiration Date Model / Serial / Lot Titanium N/A: Neck Description:Titanium implant in C4-5, C5-6 Insurance [employer] H[employer] Care Teams Furnace Maintenance Relationship Specialty Start Date End Date Albert Burns MD [address] [place] [id number] PCP - General Internal Medicine 07/13/18
--- OUTSIDE RECORDS SUMMARY | 2024-09-26 13:45 | XMS_ITS | Clinical Summary ---
Author Organization [facility] Address [address] [place] [address] Care Team Providers Care Dormitory Maid Name Role Phone Marge Medina MD Primary Care Provider [phone] Source Comments [facility],non-owned Affiliates and Associated Physician Practices is amultiple site organization consisting of ambulatory clinics and hospital sitesin [place], [place], [place] and [place]. This disclosure is being madepursuant to the Care Everywhere program and may not contain all information available regarding this patient. Last updated 18.[facility] Allergies No known active allergies Social History Tobacco Use Types Packs/Day Years Used Date Smoking Tobacco: Never Assessed Sex and Gender Information Value Date Recorded Sex Assigned at Not on file Gender Identity Not on file Sexual Orientation Not on file Plan of Treatment Health Maintenance Due Date Last Done Comments COLOGUARD (AGES 45-75) - COL ON CA SCREENING 1977 COLON MONITORING 1977 COLONOSCOPY - COLON CA SCREENING 1977 CT COLONOGRAPHY - COLON CA SCREENING 1977 Colorectal Cancer Screening 1977 FIT - COLON CA SCREENING 1977 FLEX SIG - COLON CA SCREENING 1977 LIPID TESTING 1977 MAMMOGRAM 1977 PAP SMEAR 1977 HIV SCREENING 1992 HEPATITIS C SCREENING 09/12/1995 DTAP/TDAP/TD VACCINES (1 - Tdap) 1996 HEPATITIS B VACCINE (1 of 3 - 19+ 3-dose series) 1996 COVID-19 VACCINE ( - 2023-2 5 season) 2024 INFLUENZA VACCINE (#1) 2024 DEPRESSION SCREENING 07/17/2024 ZOSTER VACCINE (1 of 2) 09/17/2027 HIB VACCINE Aged Out No longer eligi ble based on patient's age to complete this topic HPV VACCINE Aged Out No longer eligi ble based on patient's age to complete this topic MENINGOCOCCAL (Group B) VACC INE SHARED DECISION-MAKING Aged Out No longer eligibl e based on patient's age to complete this topic MENINGOCOCCAL GROUPS A/C/Y/W VACCINE Aged Out No longer eligible b ased on patient's age to complete this topic PNEUMOCOCCAL VACCINE Aged Out No long er eligible based on patient's age to complete this topic Care Teams Dormitory Maid Relationship Specialty Start Date End Date Marge Medina MD [address] [facility] [address] [place] [address] PCP - General 12/19/17
--- OUTSIDE RECORDS SUMMARY | 2024-09-26 13:45 | XMS_ITS | Patient Health Summary ---
Author Organization [facility] Address [address] [place] [address] Care Team Providers Care Correctional Lieutenant Name Role Phone Marge Medina MD Primary Care Provider [phone] Note from [facility],non-owned Affiliates and Associated Physician Practices is amultiple site organization consisting of ambulatory clinics and hospital sitesin [place] and [place]. This disclosure is being madepursuant to the Care Everywhere program and may not contain all information available regarding this patient. Last updated 18.[facility] Allergies No known active allergies Social History Tobacco Use Types Packs/Day Years Used Date Smoking Tobacco: Never Assessed Sex and Gender Information Value Date Recorded Sex Assigned at Not on file Gender Identity Not on file Sexual Orientation Not on file Procedures * IMAGING/RADIOLOGY/XRAY RESULTS ORDER(Performed 11/02/2012) * SONOGRAM - COMPLETE(Performed 04/03/2012) Results * IMAGING/RADIOLOGY/XRAY RESULTS ORDER (11/02/2012 11:27 AM CDT) Anatomical Region Laterality Modality Other Narrative 11/02/2012 11:27 AM CDT Procedure Note Document, Scanned - 11/02/2012 11:27 AM CDT Scanned Document IMAGING * SONOGRAM - COMPLETE (04/03/2012 1:04 PM CDT) Anatomical Region Laterality Modality Other 04/03/2012 1:04 PM CDT Narrative 04/03/2012 3:[facility] PHONE: FAX: Pat. Name: TONI LEGER Pat. No: [id number] Study Date: 04/03/2012 1:04pm , Age: 03 1975, 36 Pregnancies: 2, Para 1 LMP: 11/24/2011 GA by LMP: 18w5d GA by US: 18w3d GA Selected: 18w5d (LMP) WILEY: 08/30/2012 Referring MD: Sergio Bonilla MD Combination Man: Yana Patterson RDMS Hist/Ind: Prior child with Cleft Lip and Palate MEASUREMENTS & AGE GROWTH EVALUATION Measurement GA Range Srce %for GA Ratios ----- ---- ------- BPD 4.1 cm 18w3d (62s4o-29x1e) Hadl BPD 43% FL/BPD 0.67 HC 15.4 cm 18w2d (69p7a-77f0k) Hadl HC 39% FL/AC 0.21 AC 13.1 cm 18w4d ([id number]) Hadl AC 47% HC/AC 1.18 (1.07 - 1.26) FL 2.7 cm 18w3d (98i0f-31h9n) Hadl FL 42% CI 0.73 (0.70 - 0.86) HL 2.6 cm 18w1d (51p5w-06w1w) Marty HL 41% GA for sonogram 18w3d (90l1e-07u4l) Weight Estimate: based on (BPD,HC,AC,FL) Avg Weight: 241 gm (206-277) Hadlock : 0lbs, 8oz Heart Rate: 140 bpm Amniotic Fluid Index: 04.0cm (Deepest Pocket) CLINICAL SUMMARY Study Number: 1 A simon fetus is identified in variable presentation. The measurements today are consistent with appropriate growth for the WILEY provided.. The WILEY selected is based on her LMP and a prior ultrasound examination. The amniotic fluid volume is within normal limits. The placenta is anterior, Grade 1. No major malformations are seen. The patient was advised that ultrasound does not allow detection of all structural or chromosomal abnormalities. IMPRESSION: 1. Single, live, IUP 18w5d 2, AGA fetus 3. No gross anomalies visualized. No evidence of cleft lip or palate, however small defects in the soft palate can be difficult to diagnose by ultrasound. 4. Adequate AVF RECOMMEND: Follow up ultrasound as clinically indicated. Patient counseled on the findings and is aware that ultrasound does not detect all structural and chromosomal abnormalities. She voices understanding. Thank you for allowing us the opportunity to care for your patient. Sally Moreno MD <Electronic Signature> 04/03/2012 03:15pm Sergio Bonilla MD [facility] ORDERABLES Care Teams Correctional Lieutenant Relationship Specialty Start Date End Date Marge Medina MD [address] [address] PCP - General 12/19/17
--- OUTSIDE RECORDS SUMMARY | 2024-09-26 13:45 | XMS_ITS | Clinical Summary ---
Author Organization [facility] Address [address] [place] [address] Care Team Providers Care Instructor Nurse Name Role Phone Albert Bunrs MD Primary Care Provider [phone] Allergies Active Allergy Reactions Criticality Noted Date Comments Metoclopramide Itching Low 08/16/2018 Medications No known medications Social History Tobacco Use Types Packs/Day Years Used Date Smoking Tobacco: Never Smokeless Tobacco: Never Alcohol Use Standard Drinks/Week Comments Not Currently 0 (1 standard drink = 0.6 oz pur e alcohol) Comments No Sex and Gender Information Value Date Recorded Sex Assigned at Not on file Legal Sex Female 8:27 PM CDT Gender Identity Not on file Sexual Orientation Not on file Last Filed Vital Signs Vital Sign Reading Time Taken Comments Blood Pressure 119/74 08/01/2020 10:30 PM REINFORCING BAR SETTER Pulse 81 08/01/2020 10:30 PM REINFORCING BAR SETTER Temperature 37.4 C (99.3 F) 08/01/2020 7:41 PM REINFORCING BAR SETTER Respiratory Rate 14 08/01/2020 10:30 PM REINFORCING BAR SETTER Oxygen Saturation 97% 08/01/2020 10:30 PM REINFORCING BAR SETTER Inhaled Oxygen Concentration - - Weight 61.2 kg (135 lb) 08/01/2020 7:41 PM REINFORCING BAR SETTER Height 165.1 cm (5' 5 ) 08/01/2020 7:41 PM REINFORCING BAR SETTER Body Mass Index 22.47 08/01/2020 7:41 PM REINFORCING BAR SETTER Plan of Treatment Health Maintenance Due Date Last Done Comments Cervical Cancer Screening Pa p Smear (Age 30 to 64) Every 3 Years 1977 Colorectal Cancer Screening Colonoscopy (10 Years) 1977 Annual Physical 1980 Hepatitis C 09/17/1995 DTaP, Tdap and Td Vaccines ( 1 - Tdap) 1996 Hepatitis B Vaccines (1 of 3 - 19+ 3-dose series) 1996 Cervical Cancer Screening Pa p with HPV Testing (Age 30 to 64) Every 5 Years 09/17/2007 Cervical Cancer Screening with HPV 09/17/2007 Mammogram Screening 2017 COVID-19 Vaccine (1 - 2023-2 5 season) 2024 Influenza Adult (#1) 2024 08/06/2012 Meningococcal B Vaccine Aged Out No l onger eligible based on patient's age to complete this topic Meningococcal Vaccine Aged Out No catherine norma eligible based on patient's age to complete this topic Pneumococcal Vaccine: Pediat rics (0 to 5 Years) and At-Risk Patients (6 to 64 Years) Aged Out No longer eligi ble based on patient's age to complete this topic RSV Immunizations Under 20 Months Aged Out No longer eligible based on patient's age to complete this topic Insurance [phone] (Work) [id number] [place] [address] Care Teams Instructor Nurse Relationship Specialty Start Date End Date Albert Burns MD [address] [place] [id number] PCP - General INTERNAL MEDICINE 08/01/20
[2024-09-26] MEDS: METOPROLOL TARTRATE INJ 5 MG/5 ML VIAL IV PUSH ×3 (13:52→14:33)
--- NOTE | 2024-09-26 14:11 | PC.NURSE ---
pt needed to go to bathroom, advised she is unable to walk due to the medications given. patient ok with bedpan use. able to urinate and has no other needs at this time.
--- NOTE | 2024-09-26 14:17 | ECG_ITS ---
Test Date: 2024-09-26 14:21:47 Measurements Intervals [place] Rate: 123 P: 99 NE: 132 QRS: 87 QRSD: 90 T: 163 QT: 304 QTc: 436 Interpretive Statements SINUS TACHYCARDIA NONSPECIFIC T-WAVE ABNORMALITY Compared to ECG 09/26/2024 12:19:59 Supraventricular tachycardia no longer present Electronically Signed On 09-27-2024 16:42:37 CDT by Sharron Velasco M.D.
[2024-09-26 14:22] LABS: Magnesium 1.7 mg/dL (1.6-2.3)
--- NOTE | 2024-09-26 14:45 | PC.NURSE ---
Pt taken to CT on monitor
[2024-09-26 14:49] LABS: D Dimer < 0.27 ug/mL (<0.48)
--- NOTE | 2024-09-26 14:57 | P.CONCA_ITS ---
Assessment and Plan Assessment and plan (1) SVT (supraventricular tachycardia): Code(s): I47.10 - Supraventricular tachycardia, unspecified Status: Acute Assessment and Plan: This is a new diagnosis. She has converted to sinus rhythm. Discussed the diagnosis of SVT with patient and family members at the bedside including pathophysiology and management strategies. * Echo is pending * Start metoprolol succinate 12.5mg daily * TSH normal * Likely discharge tomorrow History of Present Illness History of Present Illness Consult date/time: 09/26/24 14:57 Requesting physician: Nelson Castillo MD Consult reason: Other (SVT) Reason For Visit: SVT/Anxiety Narrative: Mary Leger is a 49 year old female with generalized anxiety. She presents to the hospital with a chief complaint of palpitations. She reports that she was helping her grandfather move into the [facility] when she had a sudden onset of palpitations. She ate some food thinking this may help, but the palpitations persisted so she proceeded to the emergency department. She was found to be in SVT. Vagal maneuvers were attempted but were unsuccessful. Adenosine 6mg 1 given with no change in rhythm. She did convert to sinus tachycardia with 12mg dose of adenosine. She is asymptomatic at this point but does still feel anxious. While in SVT, she denies feeling any chest pain or shortness of breath. Review of Systems 2 Review of Systems: All systems reviewed & are unremarkable except as noted in HPI and below PMFSH Past Medical History Medical History Migraine, menstrual Allergic rhinitis mold, trees Postprandial nausea Encounter for surgical aftercare following surgery on the digestive system Diarrhea Biliary dyskinesia Dyspepsia Anxiety Surgical History Surgical History History of cholecystectomy H/O cervical spine surgery Social History Social History Smoking status: Never smoker Second hand tobacco smoke exposure: No Alcohol intake: never Substance use: never Substance use type: does not use Do You Feel Safe in your Home?: Yes Lack of Transportation: No Lack of Food: Never True Current Housing: I Have Housing Concerned About Future Housing: No Difficulty Paying Gas/Electric Bills: No Difficulty Paying for Meds: No Currently Unemployed: No Education: Master's Degree or Higher Difficulty w/ Childcare or Family Care: No Living arrangements: with family Occupation/Education: occupation Gender identity (if verbalized by the patient): Female Sexual Orientation (if Verbalized by the Patient): Straight or Heterosexual Spiritual care concerns: No Meds Home Medications and Allergies Home Medications ?Medication ?Instructions ?Recorded ?Confirmed ?Type Lactobacillus 2 cap PO DAILY 12/14/21 09/26/24 History acidophilus-Bifidobac.animalis 2.5 billion cell capsule (Daily Probiotic) ascorbic acid (vitamin C) 500 mg 500 mg PO DAILY 12/14/21 09/26/24 History capsule magnesium oxide 300 mg PO DAILY 12/14/21 09/26/24 History vitamin B complex 1 cap PO DAILY 12/14/21 09/26/24 History riboflavin (vitamin B2) 400 mg 400 mg PO DAILY 05/26/22 09/26/24 History tablet cholecalciferol (vitamin D3) 250 250 mcg PO .pm 11/17/22 09/26/24 History mcg (10,000 unit) capsule drospirenone (contraceptive) 4 mg 1 tablet PO DAILY 11/17/22 09/26/24 History (28) tablet (Slynd) fluticasone propionate 50 2 spray intranasal DAILY #16 grams 11/21/23 09/26/24 Rx mcg/actuation nasal spray,suspension (Flonase Allergy Relief) zavegepant 10 mg/actuation nasal 10 mg intranasal ONCE PRN migraine 11/29/23 09/26/24 Rx spray (Zavzpret) headache #6 ea loratadine 10 mg tablet (Claritin) 10 mg PO PRN PRN Allergy Symptoms 02/27/24 09/26/24 History Allergies Allergy/AdvReac Type Severity Reaction Status Date / Time latex AdvReac Intermediate IRRITATION Verified 09/26/24 13:22 WITH CONDOMS metoclopramide AdvReac Intermediate Hives,JITTE Verified 09/26/24 13:22 RY ubrogepant (From Ubrelvy) AdvReac Intermediate Rash Verified 09/26/24 13:22 azithromycin AdvReac Mild Diarrhea Verified 09/26/24 13:22 levofloxacin AdvReac Mild Diarrhea Verified 09/26/24 13:22 sulfamethoxazole AdvReac Mild Diarrhea Verified 09/26/24 13:22 trimethoprim AdvReac Mild Diarrhea Verified 09/26/24 13:22 Vital Signs Vital Signs - 24 hr 09/26/24 12:37 09/26/24 13:15 09/26/24 13:23 Temperature 36.6 C Pulse Rate 215 H 130 H 126 H Respiratory Rate 22 H 20 Blood Pressure 136/77 118/76 Pulse Oximetry 100 100 09/26/24 13:52 09/26/24 14:23 09/26/24 14:32 Temperature Pulse Rate 143 H 130 H 117 H Respiratory Rate 17 Blood Pressure 101/87 Pulse Oximetry 99 09/26/24 14:33 Temperature Pulse Rate 120 H Respiratory Rate Blood Pressure Pulse Oximetry Exam 2 Const: General: comfortable, no acute distress, alert and awake O rientation/consciousness: patient oriented x3 Other: intermittently sleepy because of lorazepam HENMT: Head: normal to inspection Eyes: General: appearance normal, both eyes and all related structures P upils: Equal, round and reactive pupils present Neck: Neck: normal visual inspection, supple and no JVD Carotids: normal carotid upstroke Resp: Effort & Inspection: normal respiratory effort Auscultation: clear to auscultation bilaterally Cardio: Rate: tachycardic Rhythm: regular rhythm Heart sounds: S1 normal heart sound present, S2 normal heart sound present and no murmurs GI: Auscultation: normal bowel sounds Skin: General skin exam: normal color Neuro: General: patient oriented x3 Cranial nerves: Yes Equal, round and reactive pupils present Extrem: General: normal to inspection Psych: Appearance: grossly normal Mental Status: mental status grossly normal Results Labs and Meds 09/26/24 12:54 09/27/24 04:26 Lab results: Cardiac Enzymes 09/26/24 Range/Units 12:54 AST 52 H (14-36) U/L Troponin I < 0.012 (0.000-0.034) ng/mL Coagulation 09/26/24 Range/Units 12:54 PT 13.6 (11.1-14.7) Seconds APTT 24.2 (22.3-36.8) Seconds CBC 09/26/24 Range/Units 12:54 WBC 6.3 (4.5-10.0) K/mm3 RBC 4.84 (4.2-5.4) M/mm3 Hgb 14.6 (12.0-15.0) g/dL Hct 43.8 (37.0-47.0) % Plt Count 193 (150-375) k/mm3 Lymph # (Auto) 1.49 (0.9-3.2) K/mm3 [place] # (Auto) 0.6 (0.1-0.6) K/mm3 Eos # (Auto) 0.0 (0-0.3) K/mm3 Baso # (Auto) 0.1 (0.0-0.1) K/mm3 Comprehensive Metabolic Panel 09/26/24 Range/Units 12:54 Sodium 139 (137-145) mmol/L Potassium 3.7 (3.4-5.0) mmol/L Chloride 104 (98-107) mmol/L Carbon Dioxide 23 (22-30) mmol/L BUN 13 (7-17) mg/dL Creatinine 0.88 (0.7-1.0) mg/dL Glucose 121 H (65-110) mg/dL Calcium 9.2 (8.4-10.2) mg/dL AST 52 H (14-36) U/L ALT 40 H (6-35) U/L Alkaline Phosphatase 63 (38-126) U/L Total Protein 8.0 (6.3-8.2) g/dL Albumin 4.7 (3.5-5.1) g/dL Patient Weight 09/26/24 23:59 Weight 63.63 kg
--- NOTE | 2024-09-26 15:05 | PC.NURSE ---
Report given to ISSA Knowles
--- NOTE | 2024-09-26 15:05 | PC.NURSE ---
medical technologist prn at bedside in room
--- OUTSIDE RECORDS SUMMARY | 2024-09-26 15:24 | XMS_ITS | Clinical Summary ---
Author Organization [facility] Address [address] [place] [address] Care Team Providers Care Interior Assemblies Developer Prover Name Role Phone Albert Burns MD Primary Care Provider [phone] Allergies Active Allergy Reactions Criticality Noted Date [...] Comments Blood Pressure 119/74 08/01/2020 10:30 PM CLINICAL TRIAL MANAGER Pulse 81 08/01/2020 10:30 PM CLINICAL TRIAL MANAGER Temperature 37.4 C (99.3 F) 08/01/2020 7:41 PM CLINICAL TRIAL MANAGER Respiratory Rate 14 08/01/2020 10:30 PM CLINICAL TRIAL MANAGER Oxygen Saturation 97% 08/01/2020 10:30 PM CLINICAL TRIAL MANAGER Inhaled Oxygen Concentration - - Weight 61.2 kg (135 lb) 08/01/2020 7:41 PM CLINICAL TRIAL MANAGER Height 165.1 cm (5' 5 ) 08/01/2020 7:41 PM CLINICAL TRIAL MANAGER Body Mass Index 22.47 08/01/2020 7:41 PM CLINICAL TRIAL MANAGER Plan of Treatment Health Maintenance Due Date [...] to complete this topic Insurance x230 (Work) [id number] [place] [address] Care Teams Interior Assemblies Developer Prover Relationship Specialty Start Date End Date Albert Burns MD [address] [place] [id number] PCP - General INTERNAL MEDICINE 08/01/20
--- OUTSIDE RECORDS SUMMARY | 2024-09-26 15:24 | XMS_ITS | Clinical Summary ---
Author Organization [facility] Address [address] [place] [address] Care Team Providers Care Server Software Engineer Name Role Phone Marge Medina MD Primary Care Provider Source Comments [facility],non-owned Affiliates and Associated Physician Practices is amultiple site organization consisting of ambulatory clinics and hospital sitesin [place], [place], [place] and [place]. This disclosure is being madepursuant to the Care Everywhere program and may not contain all information available regarding this patient. Last updated 18.[facility] Allergies No known active allergies Social History [...] age to complete this topic Care Teams Server Software Engineer Relationship Specialty Start Date End Date Marge Medina MD [address] [place] [address] PCP - General 12/19/17
--- OUTSIDE RECORDS SUMMARY | 2024-09-26 15:24 | XMS_ITS | Referral Summary ---
Author Organization [facility] Address [address] [place] [address] Care Team Providers Care Collections Officer Name Role Phone Marge Medina MD Primary Care Provider [phone] Source Comments [facility],non-owned Affiliates and Associated Physician Practices is amultiple site organization consisting of ambulatory clinics and hospital sitesin [place], [place], [place] and [place]. This disclosure is being madepursuant to the Care Everywhere program and may not contain all information available regarding this patient. Last updated 18.[facility] [employer] Allergies No known active allergies Social History Tobacco Use Types Packs/Day Years Used Date Smoking Tobacco: Never Assessed Sex and Gender Information Value Date Recorded Sex Assigned at Not on file Gender Identity Not on file Sexual Orientation Not on file Plan of Treatment Not on file Care Teams Collections Officer Relationship Specialty Start Date End Date Marge Medina MD [address] [address] [facility] - General 12/19/17
--- OUTSIDE RECORDS SUMMARY | 2024-09-26 15:24 | XMS_ITS | Encounter Summary ---
Author Organization [facility] Address [address] [place] [address] Care Team Providers Care Heat Pump Installer Name Role Phone Albert Burns MD Primary Care Provider [phone] Encounter Details Date Type Department Care Team (Late st Contact Info) Description 12/22/2018 Abstract [facility] CONVERSION [address] [place] [address] , Generic Conversion, Social History Tobacco Use [...] Rule Out 07/29/2021 07/29/2021 07/29/2021 4:16 PM ACTIVITY COORDINATOR documented as of this encounter Care Teams Heat Pump Installer Relationship Specialty Start Date End Date Albert Burns MD [address] [place] [id number] PCP - General INTERNAL MEDICINE 08/01/20 documented as of this encounter
--- OUTSIDE RECORDS SUMMARY | 2024-09-26 15:24 | XMS_ITS | Patient Health Summary ---
Author Organization [facility] [employer] Address [address] [place] [address] Care Team Providers Care Farmworker Diversified Crops Name Role Phone Marge Medina MD Primary Care Provider [phone] Note from [facility],non-owned Affiliates and Associated Physician Practices is amultiple site organization consisting of ambulatory clinics and hospital sitesin [place], [place], [place] and [place]. This disclosure is being madepursuant to the Care Everywhere program and may not contain all information available regarding this patient. Last updated 18.[facility] [employer] Allergies No known active allergies Social History [...] 1:04 PM CDT Narrative [facility]/03[facility]2012 3:[facility] PHONE: FAX: Pat. Name: TONI LEGER Pat. 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 MEASUREMENTS & AGE GROWTH EVALUATION Measurement GA Range Srce %for GA Ratios ----- ---- ------- BPD 4.1 cm 18w3d ([id number]) Hadl BPD 43% FL/BPD 0.67 HC 15.4 cm 18w2d (02v6m-17m5n) Hadl HC 39% FL/AC 0.21 AC 13.1 cm 18w4d ([id number]) Hadl AC 47% HC/AC 1.18 (1.07 - 1.26) FL 2.7 cm 18w3d ([id number]-81s6c) Hadl FL 42% CI 0.73 (0.70 - 0.86) HL 2.6 cm 18w1d (59l0q-94v9k) Marty HL 41% GA for sonogram 18w3d ([id number]-87j0j) Weight Estimate: based on (BPD,HC,AC,FL) Avg Weight: [...] <Electronic Signature> 04/03/2012 03:15pm Sergio Bonilla MD [facility] ORDERABLES Care Teams Farmworker Diversified Crops Relationship Specialty Start Date End Date Marge Medina MD [address] [address] PCP - General 12/19/17
--- OUTSIDE RECORDS SUMMARY | 2024-09-26 15:24 | XMS_ITS | Clinical Summary ---
Author Organization [facility] Address [address] [place] [address] Care Team Providers Care Crown Attacher Name Role Phone Albert Burns MD Primary Care Provider [phone] Allergies Active Allergy Reactions Criticality Noted Date Comments Metoclopramide Itching,Unknown,Hives Medium 07/12/2018 Medications B complex 71-listo-R-biot -zinc [id number] iv-yu-tjn-mg tablet Take by mouth Active cetirizine (ZyrTEC) [...] coalition). Assessment & Plan (05/26/2023 9:21 AM RECREATIONAL DIRECTOR): 47-year-old female with PMHx of anxiety, migraines, [...] on file Legal Sex Female 6:54 AM RECREATIONAL DIRECTOR Gender Identity Not on file Sexual Orientation Not on file Obstetrics History Last Filed Vital Signs Vital Sign Reading Time Taken Comments Blood Pressure 124/80 05/26/2023 8:54 AM RECREATIONAL DIRECTOR Pulse 82 05/26/2023 8:54 AM RECREATIONAL DIRECTOR Temperature 36.7 C (98.1 F) 03/10/2021 10:49 AM CDT Respiratory Rate 18 08/23/2019 8:28 AM RECREATIONAL DIRECTOR Oxygen Saturation 98% 05/26/2023 8:54 AM RECREATIONAL DIRECTOR Inhaled Oxygen Concentration - - Weight 66 kg (145 lb 6.4 oz) 05/26/2023 8:54 AM RECREATIONAL DIRECTOR Height 165.1 cm (5' 5 ) 05/26/2023 8:54 AM RECREATIONAL DIRECTOR Body Mass Index 24.2 05/26/2023 8:54 AM RECREATIONAL DIRECTOR Plan of Treatment Health Maintenance Due Date [...] as needed Medical Devices Implanted Type Area Sole Molding Machine Operator Device Identifier Shelf Expiration Date Model / Serial / Lot Titanium N/A: Neck Description:Titanium implant in C4-5, C5-6 Insurance [employer] H[employer] Care Teams Crown Attacher Relationship Specialty Start Date End Date Albert Burns MD [address] [place] [id number] PCP - General Internal Medicine 07/13/18
--- OUTSIDE RECORDS SUMMARY | 2024-09-26 15:24 | XMS_ITS | Referral Summary ---
Author Organization [facility] Address [address] [place] [address] Care Team Providers Care Esl Instructor Name Role Phone Albert Burns MD Primary Care Provider Allergies Active Allergy Reactions Criticality Noted Date Comments Metoclopramide Itching,Unknown,Hives Medium 07/12/2018 Medications B complex 04-jsmwr-X-biot -zinc [id number] xv-ou-vic-mg tablet Take by mouth Active cetirizine (ZyrTEC) [...] coalition). Assessment & Plan (05/26/2023 9:21 AM CANDY COUNTER CLERK): 47-year-old female with PMHx of anxiety, migraines, [...] on file Legal Sex Female 6:54 AM CANDY COUNTER CLERK Gender Identity Not on file Sexual Orientation Not on file Last Filed Vital Signs Vital Sign Reading Time Taken Comments Blood Pressure 124/80 05/26/2023 8:54 AM CANDY COUNTER CLERK Pulse 82 05/26/2023 8:54 AM CANDY COUNTER CLERK Temperature 36.7 C (98.1 F) 03/10/2021 10:49 AM CDT Respiratory Rate 18 08/23/2019 8:28 AM CANDY COUNTER CLERK Oxygen Saturation 98% 05/26/2023 8:54 AM CANDY COUNTER CLERK Inhaled Oxygen Concentration - - Weight 66 kg (145 lb 6.4 oz) 05/26/2023 8:54 AM CANDY COUNTER CLERK Height 165.1 cm (5' 5 ) 05/26/2023 8:54 AM CANDY COUNTER CLERK Body Mass Index 24.2 05/26/2023 8:54 AM CANDY COUNTER CLERK Plan of Treatment Not on file Goals [...] as needed Medical Devices Implanted Type Area Pre Sales Network Engineer Device Identifier Shelf Expiration Date Model / Serial / Lot Titanium N/A: Neck Description:Titanium implant in C4-5, C5-6 Insurance [facility] [employer] HMO Care Teams Esl Instructor Relationship Specialty Start Date End Date Albert Burns MD [address] [place] [id number] PCP - General Internal Medicine 07/13/18
--- OUTSIDE RECORDS SUMMARY | 2024-09-26 15:24 | XMS_ITS | Encounter Summary ---
Author Organization [facility] Address [address] [place] [address] Phone Care Team Providers Care Maint Mechanic Name Role Phone Albert Burns MD Primary Care Provider [phone] Encounter Details Date Type Department Care Team (Late st Contact Info) Description 08/13/[address] [facility] Scheduling [address] [place] [address] Que Pollard MD [address] [place] [address] Social History Tobacco Use Types Packs/Day Years Used Date Smoking Tobacco: Never Smokeless Tobacco: Never Comments Unknown Sex and Gender Information Value Date Recorded Sex Assigned at Not on file Legal Sex Female 6:54 AM SALES CONSULTING DIRECTOR Gender Identity Not on file Sexual Orientation Not on file documented as of this encounter Plan of Treatment Not on file documented as of this encounter Visit Diagnoses Not on filedocumented in this encounter Care Teams Maint Mechanic Relationship Specialty Start Date End Date Albert Burns MD [address] [place] [address] PCP - General Internal Medicine 07/13/18 documented as of this encounter
[2024-09-26 16:03] LABS: Add Urine Microscopic? YES; Appearance Urine Cloudy (Clear); Bilirubin Urine Negative (Negative); Blood Urine Negative (Negative); Color Urine Yellow (Yellow); Glucose Urine UA Negative (Negative); Ketones Urine Negative (Negative); Leukocyte Esterase Ur 2+ LEU/UL (Negative); Nitrate Urine Negative (Negative); Protein Urine Negative (Negative); Specific Grav Ur 1.004 (1.001-1.035); Urobilinogen Urine 0.2 mg/dL (<2.0); pH Urine 7.5 (5.0-9.0)
[2024-09-26 16:09] LABS: RBC Urine 0-2 /hpf (0-2)
[2024-09-26 16:10] LABS: Bacteria Urine 1+ /hpf; Squamous Epithelial Cell Urine Few /hpf (Few)
--- NOTE | 2024-09-26 16:17 | ECG_ITS ---
Test Date: 2024-09-26 15:15:27 Measurements Intervals [place] Rate: 105 P: 83 FL: 148 QRS: 81 QRSD: 95 T: 45 QT: 328 QTc: 434 Interpretive Statements SINUS TACHYCARDIA Compared to ECG 09/26/2024 14:21:47 NO SIGNIFICANT CHANGES Electronically Signed On 09-27-2024 16:44:47 CDT by Sharron Velasco M.D.
--- NOTE | 2024-09-26 16:51 | ADMGEN ---
This patient, Mary Leger, was admitted to IMU Room 210-01. Patient/family oriented to hospital policies and general routines including ID bracelet, bed and alarms, visiting hours, pain management, procedures, bathroom and other care routines, personal items, smoking policy, room service/diet, and visiting hours. Information on how to activate the Rapid Response Team has been discussed. Patient/Family are encouraged to report perceived risks to care and to ask questions if they do not understand what they are told or what they should do.
[2024-09-26 16:53] LABS: Troponin I 0.037 ng/mL (0.000-0.034)
[2024-09-26 18:44] LABS: Glucose Point of Care 137 mg/dl (65-105)
[2024-09-26 19:24] LABS: Troponin I 0.022 ng/mL (0.000-0.034)
--- NOTE | 2024-09-26 21:35 | PHAR ---
home med verified drospirenone tablet one daily
[2024-09-26] MEDS: DROSPIRENONE 4 MG 1 EACH PO (21:53)
[2024-09-27] VITALS (8 sets, daily range): BP systolic 103–120; BP diastolic 54–75; PULSE 77–102; RESP 15–86; TEMP 36.6–37.1; O2SAT 16–100
[2024-09-27 05:06] LABS: Alanine Aminotransferase 36 U/L (6-35); Albumin Level 4.2 g/dL (3.5-5.1); Alkaline Phosphatase 56 U/L (38-126); Anion Gap 9 mmol/L (4-12); Aspartate Amino Transferase 33 U/L (14-36); Bilirubin,Total 0.7 mg/dL (0.2-1.3); Blood Urea Nitrogen 10 mg/dL (7-17); Carbon Dioxide 23 mmol/L (22-30); Chloride 106 mmol/L (98-107); Estimated CRCL calculation 76 ml/min; Estimated Glomerular Filt Rate > 60; Glucose 102 mg/dL (65-110); Potassium 3.7 mmol/L (3.4-5.0); Sodium 138 mmol/L (137-145)
[2024-09-27] MEDS: VITAMIN B COMPLEX CAPSULE 1 CAP PO (08:23)
[2024-09-27] MEDS: FLUTICASONE PROPIONATE 0.05% NA SPR 16 GM BTL (*BKC) 2 SPRAY NASAL (08:23)
[2024-09-27] MEDS: ENOXAPARIN 40 MG/0.4 ML SYRINGE SUB-Q (08:23)
[2024-09-27] MEDS: ASCORBIC ACID 500 MG TABLET PO (08:24)
[2024-09-27] MEDS: METOPROLOL SUCCINATE EXT REL 12.5 MG TABCR PO (08:24)
--- NOTE | 2024-09-27 10:30 | P.PNIM_ITS ---
Progress Note: A&P Assessment and Plan (1) Anxiety: Code(s): F41.9 - Anxiety disorder, unspecified Status: Acute (2) SVT (supraventricular tachycardia): Code(s): I47.10 - Supraventricular tachycardia, unspecified Status: Acute Plan (1) SVT (supraventricular tachycardia): Code(s): I47.10 - Supraventricular tachycardia, unspecified Status: Acute Assessment and Plan: Upon arrival to ED, patient was found have SVT, patient received adenosine that converted SVT to sinus rhythm Repeated EKG showed sinus tachycardia Troponin negative, D-dimer negative CTA chest shows no PE aortic dissection acute cardiopulmonary issues DVT negative PE Echocardiogram was performed, no report yet. But per Cardiology report, patient has normal heart function and structure Cardia recommend discharge patient with metoprolol 12.5 mg daily p.o. Telemetry showed sinus rhythm, no significant arrhythmia Elevated liver enzymes: Code(s): R74.8 - Abnormal levels of other serum enzymes Status: Acute Assessment and Plan: * AST 52, ALT 40 Patient denies abdomen pain nausea vomiting Recommend patient follow-up with primary care doctor for follow-up (3) Anxiety: Code(s): F41.9 - Anxiety disorder, unspecified Status: Acute Assessment and Plan: * patient given 2 doses of 1 mg IV push Ativan while in the ED Currently stable, patient has Ativan tablet and home for anxiety control GERD Patient has acid reflux, patient failed outpatient treatment with Pepcid Start Protonix 40 mg daily p.o. Subjective Date/time seen: 09/27/24 10:30 Interval history: I saw examined patient in presents of [facility] today. Patient denies palpitation, chest pain, shortness of breath, lightheadedness. Patient has acid reflux, patient to quit Pepcid at home. Patient denies nausea vomiting diarrhea dysuria. Patient afebrile blood pressure stable. Telemetry showed sinus rhythm Exam Narrative: GENERAL: Pleasant, in no acute distress. Well-nourished. - EYES: EOMI. Anicteric. - HENT: Moist mucous membranes. - LUNGS: Clear to auscultation bilateral ly, no wheezing, rhonchi, or rales. - CARDIOVASCULAR: Regular rate and rhyth m. No murmur. No JVD. - ABDOMEN: Soft, non-tender and non-dist ended. No palpable masses. - EXTREMITIES: No edema. Peripheral puls es 2+. Non-tender. - NEUROLOGIC: No focal neurological defi cits. CN II-XII grossly intact. - PSYCHIATRIC: Awake, Alert and oriented x 3. Appropriate mood and affect. - SKIN: No rashes or lesions. Warm. - LYMPH: No cervical lymphadenopathy. Objective Data Vital Signs Vital Signs: Vital Signs - 24 hr 09/26/24 12:16 09/26/24 12:17 09/26/24 12:29 Temperature Pulse Rate 204 H 228 H 136 H Respiratory Rate 24 H 20 17 Blood Pressure 139/99 H 137/92 H Pulse Oximetry 100 100 100 Oxygen Delivery 09/26/24 12:30 09/26/24 12:31 09/26/24 12:37 Temperature 97.8 F Pulse Rate 134 H 132 H 215 H Respiratory Rate 16 21 H 22 H Blood Pressure 136/77 136/77 Pulse Oximetry 100 100 100 Oxygen Delivery 09/26/24 12:45 09/26/24 12:46 09/26/24 13:00 Temperature Pulse Rate 126 H 125 H 127 H Respiratory Rate 20 18 20 Blood Pressure 145/112 H 125/79 Pulse Oximetry 100 100 100 Oxygen Delivery 09/26/24 13:15 09/26/24 13:20 09/26/24 13:23 Temperature Pulse Rate 130 H 127 H 126 H Respiratory Rate 20 17 Blood Pressure 118/76 Pulse Oximetry 100 100 Oxygen Delivery 09/26/24 13:30 09/26/24 13:31 09/26/24 13:45 Temperature Pulse Rate 131 H 129 H 132 H Respiratory Rate 22 H 22 H 16 Blood Pressure 114/78 121/81 Pulse Oximetry 100 100 100 Oxygen Delivery 09/26/24 13:45 09/26/24 13:46 09/26/24 13:52 Temperature Pulse Rate 132 H 129 H 143 H Respiratory Rate 15 18 Blood Pressure 121/81 Pulse Oximetry 100 100 Oxygen Delivery 09/26/24 14:00 09/26/24 14:01 09/26/24 14:15 Temperature Pulse Rate 121 H 122 H 127 H Respiratory Rate 19 19 22 H Blood Pressure 108/75 108/81 Pulse Oximetry 100 100 98 Oxygen Delivery 09/26/24 14:15 09/26/24 14:16 09/26/24 14:23 Temperature Pulse Rate 126 H 125 H 130 H Respiratory Rate 19 19 Blood Pressure 108/81 Pulse Oximetry 99 99 Oxygen Delivery 09/26/24 14:26 09/26/24 14:30 09/26/24 14:31 Temperature Pulse Rate 115 H 117 H 112 H Respiratory Rate 22 H 22 H 20 Blood Pressure 110/74 112/90 Pulse Oximetry 98 99 99 Oxygen Delivery 09/26/24 14:32 09/26/24 14:32 09/26/24 14:33 Temperature Pulse Rate 117 H 120 H 120 H Respiratory Rate 17 21 H Blood Pressure 101/87 101/87 Pulse Oximetry 99 95 Oxygen Delivery 09/26/24 14:45 09/26/24 14:47 09/26/24 15:18 Temperature Pulse Rate 103 H 101 H 105 H Respiratory Rate 23 H 19 20 Blood Pressure 111/74 Pulse Oximetry 96 97 99 Oxygen Delivery 09/26/24 15:31 09/26/24 17:25 09/26/24 18:00 Temperature 98.6 F Pulse Rate 107 H 95 88 Respiratory Rate 15 20 Blood Pressure 105/72 Pulse Oximetry 100 99 Oxygen Delivery 09/26/24 18:43 09/26/24 20:00 09/26/24 20:00 Temperature 97.9 F 98.1 F Pulse Rate 93 88 Respiratory Rate 15 Blood Pressure 101/59 L 108/68 Pulse Oximetry 100 100 Oxygen Delivery Room Air 09/26/24 20:00 09/26/24 22:00 09/27/24 00:00 Temperature 98.8 F Pulse Rate 95 85 86 Respiratory Rate 86 H Blood Pressure 103/54 L Pulse Oximetry 16 L Oxygen Delivery 09/27/24 00:00 09/27/24 00:00 09/27/24 02:00 Temperature Pulse Rate 78 93 Respiratory Rate Blood Pressure Pulse Oximetry Oxygen Delivery Room Air 09/27/24 04:00 09/27/24 04:00 09/27/24 04:00 Temperature 97.9 F Pulse Rate 78 102 H Respiratory Rate 15 Blood Pressure 105/71 Pulse Oximetry 99 Oxygen Delivery Room Air 09/27/24 06:00 09/27/24 07:56 09/27/24 08:24 Temperature 98.2 F Pulse Rate 81 91 78 Respiratory Rate 16 Blood Pressure 120/75 Pulse Oximetry 100 Oxygen Delivery Intake/Output Intake/Output: Intake & Output 09/24/24 09/25/24 09/26/24 09/27/24 23:59 23:59 23:59 23:59 Intake Total 0 760 Output Total 1 Balance -1 760 Meds/Results Medications: Active Medications Generic Name Dose Route Start Last Admin Trade Name Freq PRN Reason Stop Dose Admin Acetaminophen 650 mg 09/26/24 13:45 Acetaminophen 325 Mg Tablet PO Q4H PRN Mild Pain (1-3) or Fever Ascorbic Acid 500 mg 09/27/24 09:00 09/27/24 08:24 Ascorbic Acid 500 Mg Tablet PO 500 mg DAILY NIHARIKA Administration Enoxaparin Sodium 40 mg 09/27/24 09:00 09/27/24 08:23 Enoxaparin 40 Mg/0.4 Ml Syringe SUB-Q 40 mg DAILY NIHARIKA Administration Fluticasone Propionate 2 spray 09/27/24 09:00 09/27/24 08:23 Fluticasone Propionate 0.05% Na Spr 16 Gm Btl (*Bkc) NASAL 2 spray DAILY NIHARIKA Administration Loratadine 10 mg 09/26/24 20:43 Loratadine 10 Mg Tablet PO PRN PRN Allergy Symptoms Lorazepam 1 mg 09/26/24 13:50 Lorazepam Inj (*Crx) 2 Mg/Ml Vial IV PUSH Q6H PRN Anxiety Magnesium Oxide 300 mg 09/27/24 09:00 09/27/24 08:24 Magnesium Oxide 400 Mg Tablet PO Not Given DAILY NIHARIKA Metoprolol Succinate 12.5 mg 09/27/24 09:00 09/27/24 08:24 Metoprolol Succinate Ext Rel 12.5 Mg Tabcr PO 12.5 mg QAM NIHARIKA Administration Metoprolol Tartrate 5 mg 09/26/24 13:32 09/26/24 14:33 Metoprolol Tartrate Inj 5 Mg/5 Ml Vial IV PUSH 5 mg Q5M PRN Administration Blood Pressure - High Home Med ( 1 tablet 09/26/24 22:00 09/26/24 21:53 Drospirenone ( PO 10/26/24 21:59 1 tablet Contraceptive) [ Q24H NIHARIKA Administration Slynd] 4 Mg (28) Tablet) Ondansetron HCl 4 mg 09/26/24 13:45 Ondansetron Inj 4 Mg/2 Ml Vial IV PUSH Q6H PRN Nausea And Vomiting Perflutren Lipid Microsphere 0 ml 09/26/24 14:30 Perflutren Lipid Microspheres 1.5 Ml Vial Diluted To 10 Ml Total Volume IV PUSH 09/29/24 14:31 ONCE PRN adequate visualization Protocol Vitamin B Complex 1 cap 09/27/24 09:00 09/27/24 08:23 Vitamin B Complex Capsule PO 1 cap DAILY [facility] Administration Vitamin D 10,000 units 09/27/24 18:00 Cholecalciferol 5,000 Units Tablet BY MOUTH EVENING [facility] Radiology Results: ITS Impressions Chest X-Ray 09/26/24 13:32 IMPRESSION: 1. No acute cardiopulmonary disease. Chest CTA 09/26/24 15:16 IMPRESSION: No pulmonary embolus. No thoracic aortic dissection. The lungs are clear Venous Doppler Study 09/26/24 18:06 IMPRESSION: 1. No deep venous thrombosis within the bilateral lower extremities. Labs Labs: Laboratory Results - last 24 hr 09/26/24 09/26/24 09/26/24 12:54 12:54 14:44 WBC 6.3 RBC 4.84 Hgb 14.6 Hct 43.8 MCV 90.5 MCH 30.2 MCHC 33.3 RDW 12.1 Plt Count 193 MPV 11.1 H Immature Gran % (Auto) 0.2 Neut % (Auto) 66.0 Lymph % (Auto) 23.8 [place] % (Auto) 8.9 H Eos % (Auto) 0.3 Baso % (Auto) 0.8 Lymph # (Auto) 1.49 [place] # (Auto) 0.6 Eos # (Auto) 0.0 Baso # (Auto) 0.1 Abs Immat Gran (auto) 0.01 Absolute Neuts (auto) 4.1 Absolute Nucleated RBC 0.000 Nucleated RBC % 0.0 PT 13.6 INR 1.0 APTT 24.2 D-Dimer < 0.27 Sodium 139 Potassium 3.7 Chloride 104 Carbon Dioxide 23 Anion Gap 12 BUN 13 Creatinine 0.88 Estim Creat Clear Calc 65 Estimated GFR > 60 Glucose 121 H POC Capillary Glucose Calcium 9.2 Magnesium 1.7 Total Bilirubin 0.6 AST 52 H ALT 40 H Alkaline Phosphatase 63 Troponin I < 0.012 NT-Pro-B Natriuret Pep 62 Total Protein 8.0 Albumin 4.7 TSH 3.800 3.900 Urine Color Yellow Urine Appearance Cloudy H Urine pH 7.5 Ur Specific [place] 1.004 Urine Protein Negative Urine Glucose (UA) Negative Urine Ketones Negative Ur Blood (Man) Negative Urine Nitrate Negative Urine Bilirubin Negative Urine Urobilinogen 0.2 Leukocyte Esterase Rfl 2+ H Urine RBC 0-2 Urine WBC 6-10 H Ur Squamous Epith Cells Few Urine Bacteria 1+ 09/26/24 09/26/24 09/26/24 16:16 18:40 18:49 WBC RBC Hgb Hct MCV MCH MCHC RDW Plt Count MPV Immature Gran % (Auto) Neut % (Auto) Lymph % (Auto) [place] % (Auto) Eos % (Auto) Baso % (Auto) Lymph # (Auto) [place] # (Auto) Eos # (Auto) Baso # (Auto) Abs Immat Gran (auto) Absolute Neuts (auto) Absolute Nucleated RBC Nucleated RBC % PT INR APTT D-Dimer Sodium Potassium Chloride Carbon Dioxide Anion Gap BUN Creatinine Estim Creat Clear Calc Estimated GFR Glucose POC Capillary Glucose 137 H Calcium Magnesium Total Bilirubin AST ALT Alkaline Phosphatase Troponin I 0.037 H* D 0.022 D NT-Pro-B Natriuret Pep Total Protein Albumin TSH Urine Color Urine Appearance Urine pH Ur Specific [place] Urine Protein Urine Glucose (UA) Urine Ketones Ur Blood (Man) Urine Nitrate Urine Bilirubin Urine Urobilinogen Leukocyte Esterase Rfl Urine RBC Urine WBC Ur Squamous Epith Cells Urine Bacteria 09/27/24 04:26 WBC RBC Hgb Hct MCV MCH MCHC RDW Plt Count MPV Immature Gran % (Auto) Neut % (Auto) Lymph % (Auto) [place] % (Auto) Eos % (Auto) Baso % (Auto) Lymph # (Auto) [place] # (Auto) Eos # (Auto) Baso # (Auto) Abs Immat Gran (auto) Absolute Neuts (auto) Absolute Nucleated RBC Nucleated RBC % PT INR APTT D-Dimer Sodium 138 Potassium 3.7 Chloride 106 Carbon Dioxide 23 Anion Gap 9 BUN 10 Creatinine 0.74 Estim Creat Clear Calc 76 Estimated GFR > 60 Glucose 102 POC Capillary Glucose Calcium 9.0 Magnesium 2.0 Total Bilirubin 0.7 AST 33 ALT 36 H Alkaline Phosphatase 56 Troponin I NT-Pro-B Natriuret Pep Total Protein 7.0 Albumin 4.2 TSH Urine Color Urine Appearance Urine pH Ur Specific [place] Urine Protein Urine Glucose (UA) Urine Ketones Ur Blood (Man) Urine Nitrate Urine Bilirubin Urine Urobilinogen Leukocyte Esterase Rfl Urine RBC Urine WBC Ur Squamous Epith Cells Urine Bacteria
--- NOTE | 2024-09-27 11:08 | P.DS_ITS ---
DS: Admitting Diagnosis Discharge Date 09/27/24 Admitting Diagnosis SVT DS: Discharge Diagnosis Discharge Diagnosis (1) Anxiety: Code(s): F41.9 - Anxiety disorder, unspecified Status: Acute (2) SVT (supraventricular tachycardia): Code(s): I47.10 - Supraventricular tachycardia, unspecified Status: Acute DS: Summary Hospital Course Hospital Course: This is a 49 year old female with a significant past medical history of migraines, anxiety who presented to the hospital with complaints of palpitations. Patient reports that she was at [facility] moving her grandpa in when she started experiencing indigestion followed by fast palpitations. She states she felt hot and short of breath causing her feel panicked. She denied any recent illness or exposure to sick contacts. She denies any fever, chills, nausea, vomiting, diarrhea, abdominal pain, chest pain. She also reported having palpitations in the past but none that felt like this or lasted this long. She does take progesterone based control and also reported some cramping and pain in her legs recently. Work up in the hospital included a chest x-ray which was negative for any acute cardiopulmonary disease. CTA of the chest was negative for PE, thoracic aortic dissection, or any acute cardiopulmonary process. Initial labs shown a normal WBC 6.3, BG 121, AST 52, ALT 40, Troponin 0.012, TSH 3.800. EKG shown SVT with lateral [place] which appears to be acute with a rate of 192, QTc 408. D-dimer was <0.27. Patient was given a dose 6 of adenosine without any improvement in her heart rate. They then gave 12mg of adenosine and heart rate came down to the 120's. She was also given a dose of Ativan while in the ER. Cardiology was consulted. The following med issues have been addressed during hospitalization SVT (supraventricular tachycardia): Code(s): I47.10 - Supraventricular tachycardia, unspecified Status: Acute Assessment and Plan: Upon arrival to ED, patient was found have SVT, patient received adenosine that converted SVT to sinus rhythm Repeated EKG showed sinus tachycardia Troponin negative, D-dimer negative CTA chest shows no PE aortic dissection acute cardiopulmonary issues DVT negative PE Echocardiogram was performed, no report yet. But per Cardiology report, patient has normal heart function and structure Cardia recommend discharge patient with metoprolol 12.5 mg daily p.o. Telemetry showed sinus rhythm, no significant arrhythmia Elevated liver enzymes: Code(s): R74.8 - Abnormal levels of other serum enzymes Status: Acute Assessment and Plan: * AST 52, ALT 40 Patient denies abdomen pain nausea vomiting Recommend patient follow-up with primary care doctor for follow-up (3) Anxiety: Code(s): F41.9 - Anxiety disorder, unspecified Status: Acute Assessment and Plan: * patient given 2 doses of 1 mg IV push Ativan while in the ED Currently stable, patient has Ativan tablet and home for anxiety control GERD Patient has acid reflux, patient failed outpatient treatment with Pepcid Start Protonix 40 mg daily p.o. Time Spent with Patient Time attestation: Total time spent providing and/or coordinating discharge services: Exam Narrative: GENERAL: Pleasant, in no acute distress. Well-nourished. - EYES: EOMI. Anicteric. - HENT: Moist mucous membranes. - LUNGS: Clear to auscultation bilateral ly, no wheezing, rhonchi, or rales. - CARDIOVASCULAR: Regular rate and rhyth m. No murmur. No JVD. - ABDOMEN: Soft, non-tender and non-dist ended. No palpable masses. - EXTREMITIES: No edema. Peripheral puls es 2+. Non-tender. - NEUROLOGIC: No focal neurological defi cits. CN II-XII grossly intact. - PSYCHIATRIC: Awake, Alert and oriented x 3. Appropriate mood and affect. - SKIN: No rashes or lesions. Warm. - LYMPH: No cervical lymphadenopathy. DS: Data Data Completed and Pending Labs on day of discharge: Labs from last 24 hours 09/27/24 09/26/24 09/26/24 04:26 18:49 18:40 WBC RBC Hgb Hct MCV MCH MCHC RDW Plt Count MPV Immature Gran % (Auto) Neut % (Auto) Lymph % (Auto) [place] % (Auto) Eos % (Auto) Baso % (Auto) Lymph # (Auto) [place] # (Auto) Eos # (Auto) Baso # (Auto) Abs Immat Gran (auto) Absolute Neuts (auto) Absolute Nucleated RBC Nucleated RBC % PT INR APTT D-Dimer Sodium 138 Potassium 3.7 Chloride 106 Carbon Dioxide 23 Anion Gap 9 BUN 10 Creatinine 0.74 Estim Creat Clear Calc 76 Estimated GFR > 60 Glucose 102 POC Capillary Glucose 137 H Calcium 9.0 Magnesium 2.0 Total Bilirubin 0.7 AST 33 ALT 36 H Alkaline Phosphatase 56 Troponin I 0.022 D NT-Pro-B Natriuret Pep Total Protein 7.0 Albumin 4.2 TSH Urine Color Urine Appearance Urine pH Ur Specific [place] Urine Protein Urine Glucose (UA) Urine Ketones Ur Blood (Man) Urine Nitrate Urine Bilirubin Urine Urobilinogen Leukocyte Esterase Rfl Urine RBC Urine WBC Ur Squamous Epith Cells Urine Bacteria 09/26/24 09/26/24 09/26/24 16:16 14:44 12:54 WBC RBC Hgb Hct MCV MCH MCHC RDW Plt Count MPV Immature Gran % (Auto) Neut % (Auto) Lymph % (Auto) [place] % (Auto) Eos % (Auto) Baso % (Auto) Lymph # (Auto) [place] # (Auto) Eos # (Auto) Baso # (Auto) Abs Immat Gran (auto) Absolute Neuts (auto) Absolute Nucleated RBC Nucleated RBC % PT INR APTT D-Dimer Sodium Potassium Chloride Carbon Dioxide Anion Gap BUN Creatinine Estim Creat Clear Calc Estimated GFR Glucose POC Capillary Glucose Calcium Magnesium Total Bilirubin AST ALT Alkaline Phosphatase Troponin I 0.037 H* D NT-Pro-B Natriuret Pep Total Protein Albumin TSH 3.900 Urine Color Yellow Urine Appearance Cloudy H Urine pH 7.5 Ur Specific [place] 1.004 Urine Protein Negative Urine Glucose (UA) Negative Urine Ketones Negative Ur Blood (Man) Negative Urine Nitrate Negative Urine Bilirubin Negative Urine Urobilinogen 0.2 Leukocyte Esterase Rfl 2+ H Urine RBC 0-2 Urine WBC 6-10 H Ur Squamous Epith Cells Few Urine Bacteria 1+ 09/26/24 12:54 WBC 6.3 RBC 4.84 Hgb 14.6 Hct 43.8 MCV 90.5 MCH 30.2 MCHC 33.3 RDW 12.1 Plt Count 193 MPV 11.1 H Immature Gran % (Auto) 0.2 Neut % (Auto) 66.0 Lymph % (Auto) 23.8 [place] % (Auto) 8.9 H Eos % (Auto) 0.3 Baso % (Auto) 0.8 Lymph # (Auto) 1.49 [place] # (Auto) 0.6 Eos # (Auto) 0.0 Baso # (Auto) 0.1 Abs Immat Gran (auto) 0.01 Absolute Neuts (auto) 4.1 Absolute Nucleated RBC 0.000 Nucleated RBC % 0.0 PT 13.6 INR 1.0 APTT 24.2 D-Dimer < 0.27 Sodium 139 Potassium 3.7 Chloride 104 Carbon Dioxide 23 Anion Gap 12 BUN 13 Creatinine 0.88 Estim Creat Clear Calc 65 Estimated GFR > 60 Glucose 121 H POC Capillary Glucose Calcium 9.2 Magnesium 1.7 Total Bilirubin 0.6 AST 52 H ALT 40 H Alkaline Phosphatase 63 Troponin I < 0.012 NT-Pro-B Natriuret Pep 62 Total Protein 8.0 Albumin 4.7 TSH 3.800 Urine Color Urine Appearance Urine pH Ur Specific [place] Urine Protein Urine Glucose (UA) Urine Ketones Ur Blood (Man) Urine Nitrate Urine Bilirubin Urine Urobilinogen Leukocyte Esterase Rfl Urine RBC Urine WBC Ur Squamous Epith Cells Urine Bacteria Discharge Plan Discharge Attending physician on discharge: Matt Swan Consulting providers: Nate Cam Discharging Clinician: Matt Swan Anticipated Discharge Date/Time: 09/27/24 11:04 Patient Disposition: Home, Self-Care Activity: as tolerated Diet: as tolerated and heart healthy Patient Instructions: Antibiotic Form Patient Language: Niuean Stand Alone Forms: General Discharge Information Follow-up/Referrals: Nate Cam MD [Physician] - (see reading interventionist at scheduled appt ) Layla Morel PA-C [Primary Care Provider] - (see PCP in one week ) Discharge Medications: New metoprolol succinate [Toprol XL] 25 mg tablet extended release 24 hr 12.5 mg PO QAM Qty: 30 0RF pantoprazole [Protonix] 40 mg tablet,delayed release (DR/EC) 40 mg PO HS Qty: 30 0RF Continued fluticasone propionate [Flonase Allergy Relief] 50 mcg/actuation spray,suspension 2 spray intranasal DAILY Qty: 16 5RF Rx Instructions: administer 2 sprays into each nostril daily Zavzpret 10 mg/actuation spray,non-aerosol 10 mg intranasal ONCE PRN (Reason: migraine headache) Qty: 6 0RF Rx Instructions: administer into one nostril as a single dose cholecalciferol (vitamin D3) 250 mcg (10,000 unit) capsule 250 mcg PO .pm Slynd 4 mg (28) tablet 1 tablet PO DAILY vitamin B complex Capsule 1 cap PO DAILY magnesium oxide 400 mg magnesium Capsule 300 mg PO DAILY ascorbic acid (vitamin C) 500 mg Capsule 500 mg PO DAILY Daily Probiotic 2.5 billion cell Capsule 2 cap PO DAILY loratadine [Claritin] 10 mg tablet 10 mg PO PRN PRN (Reason: Allergy Symptoms) riboflavin (vitamin B2) 400 mg tablet 400 mg PO DAILY Date of admission: 09/26/24 14:28 Primary Care Provider: Layla Morel Admitting Provider: Matt Swan Attending physician on admission: Matt Swan Condition: Improved
== END 2024-09-27 12:30 | disposition home or self-care (01) ==
LOC: ANHED 14:27 → ANHIMU 15:17
PROVIDERS: Nurse Practitioner Acute Care; Admitting Provider Hospitalist; Emergency Provider Emergency Medicine; PCP Physician Assistant Medical; Visit Provider Hospitalist
DX: I47.10 Supraventricular tachycardia, unspecified (principal); R74.8 Abnormal levels of other serum enzymes; F41.1 Generalized anxiety disorder; G43.909 Migraine, unspecified, not intractable, without status migrainosus; K21.9 Gastro-esophageal reflux disease without esophagitis; M79.605 Pain in left leg; M79.604 Pain in right leg; R25.2 Cramp and spasm; Z90.49 Acquired absence of other specified parts of digestive tract; Z79.3 Long term (current) use of hormonal contraceptives; Z79.899 Other long term (current) drug therapy
CPT/HCPCS: 36415; 71045; 71275; 80053; 81001; 82948; 83735; 83880; 84443; 84484; 85025; 85380; 85610; 85730; 87086; 93005; 93306; 93970; 96372; 96374; 96375; 96376; 99285; A9270; G0378; J0153; J1650; J2060; Q9967

== ENCOUNTER 2024-10-16 14:34 | Emergency (ER) | payer OTHER, SELFPAY ==
[2024-10-16 14:42] VITALS: BP 131/72; PULSE 91; RESP 16; TEMP 36.6; O2SAT 99
--- NOTE | 2024-10-16 14:45 | ED_ITS ---
HPI - Ear Problem General Chief complaint: Ear Stated complaint: rt ear pain Time Seen by Provider: 10/16/24 14:46 Source: patient Mode of arrival: ambulatory Limitations: no limitations History of Present Illness HPI Narrative: 49 yo F presents with R ear pain. pt uses a bulb device to relieve ear pressure when she gets a migraine. Has been using this for 2 years. when a headache starts to relieves pressure from both ears. today when using the device she felt pain to R ear. removed it and saw a tiny bit of blood in the tubing of the device. then stuck her pinky finger into ear canal. felt pain when she stuck finger in there. states i have long nails so not sure if i caused injury . All systems reviewed and negative except as noted above. Related Data Home Medications ?Medication ?Instructions ?Recorded ?Confirmed ?Last Taken ?Type Lactobacillus 2 cap PO DAILY 12/14/21 10/04/24 09/25/24 History acidophilus-Bifidobac.animalis 2.5 billion cell capsule (Daily Probiotic) ascorbic acid (vitamin C) 500 mg 500 mg PO DAILY 12/14/21 10/04/24 09/25/24 History capsule magnesium oxide 300 mg PO DAILY 12/14/21 10/04/24 09/25/24 History vitamin B complex 1 cap PO DAILY 12/14/21 10/04/24 09/25/24 History riboflavin (vitamin B2) 400 mg 400 mg PO DAILY 05/26/22 10/04/24 09/25/24 History tablet cholecalciferol (vitamin D3) 250 250 mcg PO .pm 11/17/22 10/04/24 09/25/24 History mcg (10,000 unit) capsule drospirenone (contraceptive) 4 mg 1 tablet PO DAILY 11/17/22 10/04/24 09/25/24 History (28) tablet (Slynd) loratadine 10 mg tablet (Claritin) 10 mg PO PRN PRN Allergy Symptoms 02/27/24 10/04/24 09/25/24 History Allergies Allergy/AdvReac Type Severity Reaction Status Date / Time latex AdvReac Intermediate IRRITATION Verified 10/04/24 09:06 WITH CONDOMS metoclopramide AdvReac Intermediate Hives,JITTE Verified 10/04/24 09:06 RY ubrogepant (From Ubrelvy) AdvReac Intermediate Rash Verified 10/04/24 09:06 azithromycin AdvReac Mild Diarrhea Verified 10/04/24 09:06 levofloxacin AdvReac Mild Diarrhea Verified 10/04/24 09:06 sulfamethoxazole AdvReac Mild Diarrhea Verified 10/04/24 09:06 trimethoprim AdvReac Mild Diarrhea Verified 10/04/24 09:06 Review of Systems Review of Systems: CONSTITUTIONAL: Denies fever, chills, or sweats. EYES: Denies visual changes, redness, or discharge. ENT: Denies rhinorrhea, congestion, sore throat . Reports right ear pain. CARDIOVASCULAR: Denies chest pain, palpitations, or edema. RESPIRATORY: Denies cough or dyspnea. GASTROINTESTINAL: Denies abdominal pain, nausea, vomiting, or diarrhea. GENITOURINARY: Denies dysuria or hematuria. SKIN: Denies rash or itching. MUSCULOSKELETAL: Denies back pain, joint pain, or myalgia. NEUROLOGIC: Denies headache, numbness, or weakness. PSYCHIATRIC: Denies anxiety or depression. All other systems reviewed are negative, except as documented in HPI. [facility] Past Medical History Medical History Migraine, menstrual Allergic rhinitis mold, trees Postprandial nausea Encounter for surgical aftercare following surgery on the digestive system Diarrhea Biliary dyskinesia Dyspepsia Anxiety Surgical History Surgical History History of cholecystectomy H/O cervical spine surgery Social History Social History Smoking status: Never smoker Second hand tobacco smoke exposure: No Alcohol intake: never Substance use: never Substance use type: does not use Do You Feel Safe in your Home?: Yes Lack of Transportation: No Lack of Food: Never True Current Housing: I Have Housing Concerned About Future Housing: No Difficulty Paying Gas/Electric Bills: No Difficulty Paying for Meds: No Currently Unemployed: No Education: Master's Degree or Higher Difficulty w/ Childcare or Family Care: No Living arrangements: with family Occupation/Education: occupation Gender identity (if verbalized by the patient): Female Sexual Orientation (if Verbalized by the Patient): Straight or Heterosexual Spiritual care concerns: No Comments At time of signature, agree with nursing past medical, surgical, social and family history. There is no relevant family history pertinent to the presenting complaint. Exam Narrative: GENERAL: This is a well-nourished, well-developed patient, in no apparent distress. HEAD: normocephalic, atraumatic. EYES: PERRL. Sclera clear/white. Vision is grossly intact. EARS: External ears normal, left ear canal normal. abrasion to bottom of R ear canal, deeper wound to top of ear canal with bleeding controlled, TMs normal without perforation Bilaterally. Hearing grossly intact. NOSE: External nose normal NECK: Neck supple, non-tender without lymphadenopathy, masses or thyromegaly. CARDIOVASCULAR: Regular rate and rhythm without murmurs, gallops, or rubs. RESPIRATORY: Clear to auscultation. Breath sounds equal bilaterally. No wheezes, rales, or rhonchi. SKIN: warm, Dry, intact with no suspicious lesions or rash, good texture and turgor. NEURO: awake, alert, and oriented to person, place and time. There were no obvious focal neurologic abnormalities. EXTREMITIES: No joint tenderness, effusion, or edema noted. Course Course Level of Care: Express Care Visit Vital Signs Vital signs: Vital Signs Temperature 36.6 C 10/16/24 14:42 Pulse Rate 91 10/16/24 14:42 Respiratory Rate 16 10/16/24 14:42 Blood Pressure 131/72 10/16/24 14:42 Pulse Oximetry 99 10/16/24 14:42 Oxygen Delivery Room Air 10/16/24 14:42 Temperature 36.6 C 10/16/24 14:42 Pulse Rate 91 10/16/24 14:42 Respiratory Rate 16 10/16/24 14:42 Blood Pressure 131/72 10/16/24 14:42 Pulse Oximetry 99 10/16/24 14:42 Oxygen Delivery Room Air 10/16/24 14:42 Reviewed Medical Decision Making MDM Narrative Medical decision making narrative: it appears that ear pressure device caused abrasion to right ear canal. Patient then placed her right finger into ear canal to check for injury and may have caused deeper wound to top of ear canal with her fingernail. Bleeding is controlled. Recommend patient not stick any thing in to right ear canal until healed. Please be advised this is a medical document. It is intended for uwaf-yd-uzou communication. It is written in medical language and may contain unfamiliar abbreviations or verbiage. Medical documents are intended to carry relevant information, facts as evident, and the clinical opinion of the practitioner at the time of the encounter. This report may have been done utilizing a voice recognition system. Attempts have been made to correct errors. However, there may be uncorrected grammatical, spelling, and recognition errors present. The file time of this note does not necessarily represent the time of service. Vital Signs Vital Signs: Vital Signs Temperature 36.6 C 10/16/24 14:42 Pulse Rate 91 10/16/24 14:42 Respiratory Rate 16 10/16/24 14:42 Blood Pressure 131/72 10/16/24 14:42 Pulse Oximetry 99 10/16/24 14:42 Oxygen Delivery Room Air 10/16/24 14:42 Temperature 36.6 C 10/16/24 14:42 Pulse Rate 91 10/16/24 14:42 Respiratory Rate 16 10/16/24 14:42 Blood Pressure 131/72 10/16/24 14:42 Pulse Oximetry 99 10/16/24 14:42 Oxygen Delivery Room Air 10/16/24 14:42 Discharge Plan Discharge Clinical Impression: Injury of ear canal Qualifiers: Encounter type: initial encounter Qualified Code(s): S09.91XA - Unspecified injury of ear, initial encounter Patient Disposition: Home, Self-Care Condition: Stable Instructions: Laceration (ED) Additional Instructions: There is an abrasion to your right ear canal. Avoid putting anything into your ear, such as Q tips, to allowing healing. See your doctor if pain is not improving. Patient Language: Belarusian Prescriptions: No Action fluticasone propionate [Flonase Allergy Relief] 50 mcg/actuation spray,suspension 2 spray intranasal DAILY Qty: 16 5RF Rx Instructions: administer 2 sprays into each nostril daily Zavzpret 10 mg/actuation spray,non-aerosol 10 mg intranasal ONCE PRN (Reason: migraine headache) Qty: 6 0RF Rx Instructions: administer into one nostril as a single dose metoprolol succinate [Toprol XL] 25 mg tablet extended release 24 hr 25 mg PO QAM Qty: 30 0RF cholecalciferol (vitamin D3) 250 mcg (10,000 unit) capsule 250 mcg PO .pm Slynd 4 mg (28) tablet 1 tablet PO DAILY vitamin B complex Capsule 1 cap PO DAILY magnesium oxide 400 mg magnesium Capsule 300 mg PO DAILY ascorbic acid (vitamin C) 500 mg Capsule 500 mg PO DAILY Daily Probiotic 2.5 billion cell Capsule 2 cap PO DAILY loratadine [Claritin] 10 mg tablet 10 mg PO PRN PRN (Reason: Allergy Symptoms) pantoprazole [Protonix] 40 mg tablet,delayed release (DR/EC) 40 mg PO HS Qty: 30 0RF riboflavin (vitamin B2) 400 mg tablet 400 mg PO DAILY Follow-up/Referrals: Layla Morel PA-C [Primary Care Provider] - Time of Disposition: 14:54
--- OUTSIDE RECORDS SUMMARY | 2024-10-16 16:01 | XMS_ITS | Clinical Summary ---
Author Organization [facility] Address [address] [place] [address] Care Team Providers Care Textiles And Clothing Teacher Name Role Phone Albert Burns MD Primary Care Provider [phone] Allergies Active Allergy Reactions Criticality Noted Date [...] Comments Blood Pressure 119/74 08/01/2020 10:30 PM LEASE PURCHASE TRUCK DRIVER Pulse 81 08/01/2020 10:30 PM LEASE PURCHASE TRUCK DRIVER Temperature 37.4 C (99.3 F) 08/01/2020 7:41 PM LEASE PURCHASE TRUCK DRIVER Respiratory Rate 14 08/01/2020 10:30 PM LEASE PURCHASE TRUCK DRIVER Oxygen Saturation 97% 08/01/2020 10:30 PM LEASE PURCHASE TRUCK DRIVER Inhaled Oxygen Concentration - - Weight 61.2 kg (135 lb) 08/01/2020 7:41 PM LEASE PURCHASE TRUCK DRIVER Height 165.1 cm (5' 5 ) 08/01/2020 7:41 PM LEASE PURCHASE TRUCK DRIVER Body Mass Index 22.47 08/01/2020 7:41 PM LEASE PURCHASE TRUCK DRIVER Plan of Treatment Health Maintenance Due Date [...] to complete this topic Insurance [id number] (Work) [id number] [place] [address] Care Teams Textiles And Clothing Teacher Relationship Specialty Start Date End Date Albert Burns MD [address] [place] [id number] PCP - General INTERNAL MEDICINE 08/01/20
--- OUTSIDE RECORDS SUMMARY | 2024-10-16 16:01 | XMS_ITS | Encounter Summary ---
Author Organization [facility] Address [address] [place] [address] Phone Care Team Providers Care Behavioral Health Professional Name Role Phone Albert Burns MD Primary Care Provider [phone] Encounter Details Date Type Department Care Team (Late st Contact Info) Description 08/13/2019 Telephone [facility] Scheduling [address] [place] [address] Que Pollard MD [address] [place] [address] Social History Tobacco Use Types Packs/Day Years Used Date Smoking Tobacco: Never Smokeless Tobacco: Never Comments Unknown Sex and Gender Information Value Date Recorded Sex Assigned at Not on file Legal Sex Female 6:54 AM GAME PRODUCER Gender Identity Not on file Sexual Orientation Not on file documented as of this encounter Plan of Treatment Not on file documented as of this encounter Visit Diagnoses Not on filedocumented in this encounter Care Teams Behavioral Health Professional Relationship Specialty Start Date End Date Albert Burns MD [address] [place] [id number] PCP - General Internal Medicine 07/13/18 documented as of this encounter
--- OUTSIDE RECORDS SUMMARY | 2024-10-16 16:01 | XMS_ITS | Clinical Summary ---
Author Organization [facility] Address [address] [place] [address] Care Team Providers Care Expressive Therapist Name Role Phone Marge Medina MD Primary Care Provider Source Comments [facility],non-owned Affiliates and Associated Physician Practices is amultiple site organization consisting of ambulatory clinics and hospital sitesin [place], [place], [place] and [place]. This disclosure is being madepursuant to the Care Everywhere program and may not contain all information available regarding this patient. Last updated 18.[facility] Allergies No known active allergies Social History [...] - 19+ 3-dose series) 1996 COVID-19 VACCINE (2023-2 5 season) 2024 DEPRESSION SCREENING 07/17/2024 INFLUENZA VACCINE (Season Ended) 2025 ZOSTER VACCINE (1 of 2) 09/17/2027 HIB [...] age to complete this topic Care Teams Expressive Therapist Relationship Specialty Start Date End Date Marge Medina MD [address] [place] [address] PCP - General 12/19/17
--- OUTSIDE RECORDS SUMMARY | 2024-10-16 16:02 | XMS_ITS | Clinical Summary ---
Author Organization [facility] Address [address] [place] [address] Care Team Providers Care Emergency Technician Name Role Phone Albert Burns MD Primary Care Provider [phone] Allergies Active Allergy Reactions Criticality Noted Date Comments Metoclopramide Itching,Unknown,Hives Medium 07/12/2018 Medications B complex 60-nhzpz-S-biot -zinc 9-710-433-50 uh-mj-ojv-mg tablet Take by mouth Active cetirizine (ZyrTEC) [...] coalition). Assessment & Plan (05/26/2023 9:21 AM FORENSIC PHOTOGRAPHER): 47-year-old female with PMHx of anxiety, migraines, [...] bilateral low back pain without sciatica 08/23/2019 Encounters Date Type Department Care Team Description 10/03/2024 Orders Only [facility] Cardiology [address] [place] [address] Angie Kelly NP from Last 3 Months Immunizations Immunization Administration Dates Next Due Influenza, Trivalent, Preservative Free, Intramu scular 08/06/2012 Surgical History Surgery Date Site/Laterality Comments NECK SURGERY 2010 CHOLECYSTECTOMY 07/17/2017 - 07/16/2018 ENDOMETRIAL BIOPSY 07/17/2012 [...] Sister 1 Sister 2 Sheila Son Donnie Leger Social History Tobacco Use Types Packs/Day Years [...] on file Legal Sex Female 6:54 AM FORENSIC PHOTOGRAPHER Gender Identity Not on file Sexual Orientation Not on file Obstetrics History Last Filed Vital Signs Vital Sign Reading Time Taken Comments Blood Pressure 124/80 05/26/2023 8:54 AM FORENSIC PHOTOGRAPHER Pulse 82 05/26/2023 8:54 AM FORENSIC PHOTOGRAPHER Temperature 36.7 C (98.1 F) 03/10/2021 10:49 AM CDT Respiratory Rate 18 08/23/2019 8:28 AM FORENSIC PHOTOGRAPHER Oxygen Saturation 98% 05/26/2023 8:54 AM FORENSIC PHOTOGRAPHER Inhaled Oxygen Concentration - - Weight 66 kg (145 lb 6.4 oz) 05/26/2023 8:54 AM FORENSIC PHOTOGRAPHER Height 165.1 cm (5' 5 ) 05/26/2023 8:54 AM FORENSIC PHOTOGRAPHER Body Mass Index 24.2 05/26/2023 8:54 AM FORENSIC PHOTOGRAPHER Plan of Treatment Health Maintenance Due Date Last Done Comments Breast Cancer Screening-Mammogram 1977 Cervical Cancer Screening 1977 Colon Cancer Screening-Colonoscopy 1977 Depression Screening 1977 Hepatitis C Screening 1977 DTaP/Tdap/Td Vaccine (1 - Tdap) 1988 Hepatitis B Screening 09/17/1995 Regular Well Visit/Exam 18-64 09/17/1995 Influenza Vaccine (Season Ended) 2025 08/06/19 13 Pneumococcal vaccine <65 Aged Out No longer [...] as needed Medical Devices Implanted Type Area Harvest Manager Device Identifier Shelf Expiration Date Model / Serial / Lot Titanium N/A: Neck Description:Titanium implant in C4-5, C5-6 Procedures Procedure Name Priority Date/Time Associated Diagnosis Comments CARDIOLOGY DOCUMENT SCAN Routine 025 10:58 AM CDT from Last 3 Months Results * Cardiology Document Scan (09/26/2024 10:58 AM CDT) Anatomical Region Laterality Modality Other Angie Kelly NP CV CARDIAC SERVICES PROCEDUR ES Final Result from Last 3 Months Insurance [employer] HMO [employer] OPEN ACCESS Care Teams Emergency Technician Relationship Specialty Start Date End Date Albert Burns MD [address] [place] [id number] PCP - General Internal Medicine 07/13/18
--- OUTSIDE RECORDS SUMMARY | 2024-10-16 16:02 | XMS_ITS | Patient Health Record ---
Author Organization [facility] Address [address] [place] [address] Care Team Providers Care Card Cutter Helper Name Role Phone Albert Burns MD Primary Care Provider Unavailab marlon LAURA MD, SILVANA Unavailable [phone] Yolanda Koenig Unavailable Unavailable ALLERGIES Allergen [...] pain, unspecified (R07.9) Active confirmed Chest pain (18017254) Problem Epigastric pain (R10.13) Active confirmed Epigastric pain (76360789) Problem Nausea (R11.0) Active confirmed Nausea (014786642) Problem Abnormal weight loss (R63.4) Active confirmed Abnormal weight loss (225245596) Problem Helicobacter pylori as the cause of diseases classd elsr (B96.81) Active confirmed Helicobacter pylori gastrointestinal tract infection (342379265) PLAN OF TREATMENT Pending Test Test Name Order Date Esophagogastroduodenoscopy (EGD) 018 Esophagogastroduodenoscopy (EGD) 018 Insurance Providers Payer Name Payer Address Payer Phone Subscriber Number Group Number Insured Name Patient Relationship to Insured Coverage Start Date Coverage End Date [facility] [address] [place], [place] [id number] Mary Leger Self - patient is the insured MEDICAL (GENERAL) HISTORY Medical History History ICD Code Anxiety Biliary dyskinesia Migraines H. 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 pylori. Duodenal bx neg.
--- OUTSIDE RECORDS SUMMARY | 2024-10-16 16:02 | XMS_ITS | Referral Summary ---
Author Organization [facility] Address [address] [place] [address] Care Team Providers Care Metal Room Dental Technician Name Role Phone Albert Burns MD Primary Care Provider [phone] Encounters Date Type Department Care Team Description 10/03/2024 Orders Only [facility] Cardiology [address] [place] [address] Angie Kelly NP from Last 3 Months Allergies Active Allergy Reactions Criticality Noted Date Comments Metoclopramide Itching,Unknown,Hives Medium 07/12/2018 Medications B complex 26-wocmc-Y-biot -zinc 9-605-648-50 bm-bq-gkr-mg tablet Take by mouth Active cetirizine (ZyrTEC) [...] nl, CRP 0.37mg/dL, ESR 2 AVISE 05/08/23: CHTE by glenys only, neg by IFA, neg anti-CarP XR 05/12/23: B/l hands: mild OA left 1st MCP joint. R hip: normal SI joints: normal B/l feet: minimal to mild polyarticular OA in the mid and forefoot most prominent at TMT and DIP joints. 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 Assessment & Plan (05/26/2023 9:21 AM TURRET LATHE SET UP OPERATOR): 47-year-old female with PMHx of anxiety, migraines, [...] on file Legal Sex Female 6:54 AM TURRET LATHE SET UP OPERATOR Gender Identity Not on file Sexual Orientation Not on file Last Filed Vital Signs Vital Sign Reading Time Taken Comments Blood Pressure 124/80 05/26/2023 8:54 AM TURRET LATHE SET UP OPERATOR Pulse 82 05/26/2023 8:54 AM TURRET LATHE SET UP OPERATOR Temperature 36.7 C (98.1 F) 03/10/2021 10:49 AM CDT Respiratory Rate 18 08/23/2019 8:28 AM TURRET LATHE SET UP OPERATOR Oxygen Saturation 98% 05/26/2023 8:54 AM TURRET LATHE SET UP OPERATOR Inhaled Oxygen Concentration - - Weight 66 kg (145 lb 6.4 oz) 05/26/2023 8:54 AM TURRET LATHE SET UP OPERATOR Height 165.1 cm (5' 5 ) 05/26/2023 8:54 AM TURRET LATHE SET UP OPERATOR Body Mass Index 24.2 05/26/2023 8:54 AM TURRET LATHE SET UP OPERATOR Plan of Treatment Not on file Goals Goal Patient Goal Type Associated Problems Recent Progress Patient-Stated? Author CCM Chronic Pain Care Plan Chronic Care Management No Theresa Garcia RN Note: Problem: Chronic Pain Goals: 1. Minimize further functional decline 2. Maximize quality of life 3. Control pain Strategies: - Activity/exercise program recommendation - Conservative stepwise pain medicine strategy with multi-disciplinary approach - Recommend healthy lifestyle strategies and compensatory methods as needed Medical Devices Implanted Type Area Customer Experience Consultant Device Identifier Shelf Expiration Date Model / [...] Final Result from Last 3 Months Insurance [employer] HMO [employer] OPEN ACCESS Care Teams Metal Room Dental Technician Relationship Specialty Start Date End Date Albert Burns MD [address] [place] [id number] PCP - General Internal Medicine 07/13/18
--- OUTSIDE RECORDS SUMMARY | 2024-10-16 16:02 | XMS_ITS | Encounter Summary ---
Author Organization [facility] Address [address] [place] [address] Care Team Providers Care Special Makeup Fx Artist Instructor Name Role Phone Albert Burns MD Primary Care Provider [phone] Encounter Details Date Type Department Care Team (Late st Contact Info) Description 12/22/2018 Abstract [facility] CONVERSION [address] [place] [address] , Generic Conversion, Social History Tobacco Use [...] Rule Out 07/29/2021 07/29/2021 07/29/2021 4:16 PM SBA BUSINESS DEVELOPMENT OFFICER documented as of this encounter Care Teams Special Makeup Fx Artist Instructor Relationship Specialty Start Date End Date Albert Burns MD [address] [place] [id number] PCP - General INTERNAL MEDICINE 08/01/20 documented as of this encounter
== END 2024-10-16 14:58 | disposition home or self-care (01) ==
PROVIDERS: Emergency Provider Nurse Practitioner Family; PCP Physician Assistant Medical
DX: S01.301A Unspecified open wound of right ear, initial encounter (principal); X58.XXXA Exposure to other specified factors, initial encounter; K82.8 Other specified diseases of gallbladder
CPT/HCPCS: 99211; G0463